=== PATIENT | female | born 1965 | race Caucasian/White ===

== ENCOUNTER 2020-04-17 10:43 | Outpatient (CLI) | payer OTHER, SELFPAY ==
--- NOTE | ~2020-04-17 | MM_ITS ---
EXAMINATION: MM scrn fco implant BI w venkat HISTORY: Screening mammogram TECHNIQUE: Craniocaudal and mediolateral oblique 3-D tomosynthesis images with implant displacement a nd synthetic 2-D images were generated. Craniocaudal and mediolateral oblique views of the breasts wi thout implant displacement were obtained using full field digital mammography. CAD analysis was submi tted and interpreted. COMPARISON: Comparison to multiple prior studies sequentially, with oldest reviewed study dated 03/31. BREAST PARENCHYMAL COMPOSITION: The breasts are heterogeneously dense, which may obscure small masses . FINDINGS: Stable right periareolar mass previously characterized as a benign cysts. There is no evide nce of suspicious mass, calcification, or architectural distortion to suggest malignancy in either br east. There has been no suspicious interval change. IMPRESSION: 1. No mammographic evidence of malignancy. 2. Recommend routine screening mammography in one year. BI-RADS Category 2: Benign finding(s). Reviewed, dictated and finalized at location A.
== END 2020-04-17 10:44 | disposition home or self-care (01) ==
PROVIDERS: PCP Nurse Practitioner Obstetrics & Gynecology; Visit Provider Nurse Practitioner Obstetrics & Gynecology
DX: Z12.31 Encounter for screening mammogram for malignant neoplasm of breast (principal)
CPT/HCPCS: 77063; 77067

== ENCOUNTER 2020-08-23 21:08 | Emergency (ER) | payer OTHER, SELFPAY ==
--- NOTE | ~2020-08-23 | CT_ITS ---
EXAMINATION: CT abdomen pelvis w con EXAM DATE: 08/23/2020 23:19 INDICATION: Left upper quadrant pain for one month. TECHNIQUE: Spiral CT of the abdomen and pelvis was performed following intravenous injection of 100 m L Omnipaque 350. Axial, coronal and sagittal images were reviewed. The dose-length product (DLP) fo r this examination was 374.18 mGy-cm. The exposure was tailored according to patient size (auto mA e xposure control), and iterative reconstruction (ASIR) was used as additional dose reduction technique . There is no prior study for comparison. FINDINGS: The liver, spleen, adrenal glands and pancreas are unremarkable. Gallbladder is unremarkab le. No biliary obstruction. Portal and splenic veins are patent. Kidneys enhance symmetrically. T here is no hydronephrosis. The uterus is unremarkable. The bladder is unremarkable. There is no retroperitoneal or pelvic lymphadenopathy. The appendix is normal. The stomach and small bowel are unremarkable. There is large amount of colo jonna stool. No free intraperitoneal gas. The heart is normal in size. There are no pericardial or pleural effusions. The lung bases are unremarkable. The bones are unremarkable. IMPRESSION: Large amount of colonic stool and gas. Consider constipation. Reviewed, dictated and finalized at location G.
[2020-08-23 21:11] VITALS: BP 127/86; PULSE 56; RESP 12; TEMP 36.5; O2SAT 100
[2020-08-23 21:46] VITALS: BP 127/86; PULSE 56; RESP 14; TEMP 36.5; O2SAT 100
--- NOTE | 2020-08-23 22:15 | ED.GENADULT ---
HPI - General Adult General Chief complaint: Abdominal Pain Stated complaint: abd pain Time Seen by Provider: 08/23/20 22:00 History of Present Illness HPI narrative: Intermittent LUQ abdomianl pain for the past month. No radiation. Usually worse after food. Associated with bloating. She is scheduled to have an outpatient CT soon, but the pain was worse tonight, so she came in instead. No fever, chills, nausea, vomiting, diarrhea. She had recent upper endoscopy, which it sounds like was essentially normal. Related Data Allergies Allergy/AdvReac Type Severity Reaction Status Date / Time No Known Allergies Allergy Verified 01/15/17 19:40 Review of Systems Review of Systems: All systems reviewed & are unremarkable except as noted in HPI and below Constitutional: Constitutional: Denies chills and Denies fever(s) ENT: Denies sore throat Cardiovascular: Cardiovascular: Denies chest pain Respiratory: Respiratory: Denies dyspnea Gastrointestinal: Gastrointestinal: Reports abdominal pain, Denies diarrhea, Denies nausea and Denies vomiting Genitourinary: Genitourinary: Denies hematuria, Denies nocturia and Denies dysuria Musculoskeletal: Musculoskeletal: Denies back pain Neurologic: Denies weakness [facility] Family History Family History (Updated 06/06/16 @ 23:19 by DOCTOR UNKNOWN) Mother Hypertension Family history of malignant neoplasm of cervix Family history of malignant neoplasm of ovary Grandparent Cerebrovascular accident Family history of malignant neoplasm of breast Social History Social History Smoking status: Never smoker Second hand tobacco smoke exposure: No Alcohol intake: current Gender identity (if verbalized by the patient): Female Exam Const: General: healthy appearing, no acute distress and alert Orientation/consciousness: patient oriented x3 HENMT: Head: normal to inspection Neck: Neck: normal visual inspection and no lymphadenopathy Chest: Chest palpation & inspection: no tenderness Resp: Effort & Inspection: normal respiratory effort Auscultation: clear to auscultation bilaterally, no rales, no rhonchi and no wheezes Cardio: Jugular venous distension: no JVD Rate: regular rate Rhythm: regular rhythm Heart sounds: no murmurs GI: Inspection: non-distended GI Palp: Yes Soft to palpation and No Tenderness to palpation present (GI) Skin: General skin exam: normal color Neuro: General: patient oriented x3 and moves all extremities Speech: normal speech Extrem: General: no edema Psych: Appearance: well kempt Affect: normal affect Course Vital Signs Vital signs: Vital Signs Temperature 36.5 C 08/23/20 21:11 Pulse Rate 56 L 08/23/20 21:11 Respiratory Rate 12 08/23/20 21:11 Blood Pressure 127/86 08/23/20 21:11 Pulse Oximetry 100 08/23/20 21:11 Temperature 36.5 C 08/23/20 21:46 Pulse Rate 54 L 08/24/20 00:01 Respiratory Rate 18 08/24/20 00:01 Blood Pressure 102/81 08/24/20 00:01 Pulse Oximetry 100 08/24/20 00:01 Medical Decision Making MDM Narrative Medical decision making narrative: DD: Diverticulitis, kidney stone, Consitpation, CT shows a large volume of stool consistent with constipation. This fits well with the history. Medical Records Medical records reviewed: Yes I reviewed the patient's medical records. Vital Signs Vital Signs: Vital Signs Temperature 36.5 C 08/23/20 21:11 Pulse Rate 56 L 08/23/20 21:11 Respiratory Rate 12 08/23/20 21:11 Blood Pressure 127/86 08/23/20 21:11 Pulse Oximetry 100 08/23/20 21:11 Temperature 36.5 C 08/23/20 21:46 Pulse Rate 54 L 08/24/20 00:01 Respiratory Rate 18 08/24/20 00:01 Blood Pressure 102/81 08/24/20 00:01 Pulse Oximetry 100 08/24/20 00:01 Lab Data Lab results reviewed: Yes I reviewed the patient's lab results. Result diagrams: 08/23/20 22:42 08/23/20 22:42 Labs: Lab Results 08/23/20
[2020-08-23 22:47] LABS: Basophils Absolute Auto 0.1 K/mm3 (0.0-0.1); Eosinophils Absolute Auto 0.1 K/mm3 (0-0.3); Eosinophils Percent Auto 1.6 % (0-4.4); Hematocrit 39.6 % (37.0-47.0); Hemoglobin 13.3 g/dL (12.0-15.0); Immature Granulocyte Absolute 0.01 K/mm3 (0.00-0.031); Immature Granulocyte Percent A 0.2 % (0-0.5); Lymphocytes Absolute Auto 2.39 K/mm3 (0.9-3.2); Lymphocytes Percent Auto 46.7 % (18.3-44.2); Mean Corpuscular HGB Conc 33.6 g/dl (32-36); Mean Corpuscular Hemoglobin 33.1 pg (26-34); Mean Corpuscular Volume 98.5 fl (80-100); Mean Platelet Volume 10.5 fl (7.4-10.4); Monocytes Absolute Auto 0.4 K/mm3 (0.1-0.6); Monocytes Percent Auto 8.2 % (2.6-8.5); Neutrophils Absolute Auto 2.2 K/mm3 (1.3-6.7); Neutrophils Percent Auto 42.3 % (45.5-73.1); Platelet Count Result 261 k/mm3 (150-375); Red Blood Count 4.02 M/mm3 (4.2-5.4); Red Cell Distribution Width 12.5 % (11.5-14.5); White Blood Count 5.1 K/mm3 (4.5-10.0)
[2020-08-23 22:59] LABS: Alanine Aminotransferase 23 U/L (4-35); Albumin Level 4.7 g/dL (3.5-5.1); Alkaline Phosphatase 38 U/L (38-126); Anion Gap 5 mmol/L (8-16); Aspartate Amino Transferase 27 U/L (14-36); Bilirubin,Total 0.4 mg/dL (0.2-1.3); Blood Urea Nitrogen 14 mg/dL (7-17); Calcium 9.8 mg/dL (8.4-10.2); Carbon Dioxide 33 mmol/L (22-30); Chloride 103 mmol/L (98-107); Estimated CRCL calculation 66 ml/min; Estimated Glomerular Filt Rate > 60; Glucose 89 mg/dL (65-105); Lipase 121 U/L (23-300); Potassium 3.7 mmol/L (3.4-5.0); Sodium 141 mmol/L (137-145)
[2020-08-24 00:01] VITALS: BP 102/81; PULSE 54; RESP 18; O2SAT 100
== END 2020-08-24 00:41 | disposition home or self-care (01) ==
PROVIDERS: Emergency Provider Emergency Medicine
DX: K59.00 Constipation, unspecified (principal)
CPT/HCPCS: 36415; 74177; 80053; 81025; 83690; 85025; 99284; Q9967

== ENCOUNTER 2020-11-09 12:32 | Emergency (ER) | payer OTHER, SELFPAY ==
--- NOTE | ~2020-11-09 | XR_ITS ---
EXAMINATION: XR chest 2V DATE: 11/09/2020 13:40 INDICATION: Right-sided lower anterior chest pain TECHNIQUE: PA and lateral views of the chest were obtained. COMPARISON: Chest radiograph dated 01/15/2017 FINDINGS: The lungs remain clear with no focal airspace opacities, pulmonary edema, pleural effusion or pneumot horax. The cardiomediastinal silhouette is normal. Bilateral breast implants. Mild thoracic spondylos is and unchanged mild chronic anterior wedging of a lower thoracic vertebral body. IMPRESSION: 1. No acute cardiopulmonary disease. Reviewed, dictated and finalized at location A. 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
--- NOTE | ~2020-11-09 | CT_ITS ---
EXAMINATION: CTA chest PE protocol DATE: 11/09/2020 15:02 INDICATION: Chest pain TECHNIQUE: Computed tomography angiography (CTA) of the chest was performed with 100 mL Omnipaque-350 intravenous contrast timed to evaluate the pulmonary arteries. Coronal maximum intensity projection 3D-reconstructions were created by the technologist. The dose-length product (DLP) was 302.18 mGy-cm. Automated exposure control and iterative reconstruction technique were employed. COMPARISON: None. FINDINGS: The pulmonary arteries are well-opacified. No pulmonary embolism is identified. The lungs a re free of acute opacities. There is no pleural effusion or pneumothorax. No pathologically enlarged thoracic lymph nodes are identified. The heart size is normal. Breast implants are noted. There is mi ld thoracic and moderate cervical spondylosis. IMPRESSION: 1. No pulmonary embolism or acute cardiopulmonary abnormality. Reviewed, dictated and finalized at location A. 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
[2020-11-09 12:35] VITALS: BP 176/110; PULSE 62; RESP 20; TEMP 36.8; O2SAT 100
--- NOTE | 2020-11-09 12:39 | ECG_ITS ---
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
[2020-11-09 13:00] LABS: Basophils Absolute Auto 0.1 K/mm3 (0.0-0.1); Basophils Percent Auto 1.1 % (0.2-1.2); Eosinophils Absolute Auto 0.1 K/mm3 (0-0.3); Hematocrit 38.5 % (37.0-47.0); Hemoglobin 12.8 g/dL (12.0-15.0); Lymphocytes Percent Auto 54.3 % (18.3-44.2); Mean Corpuscular HGB Conc 33.2 g/dl (32-36); Mean Corpuscular Hemoglobin 32.1 pg (26-34); Mean Corpuscular Volume 96.5 fl (80-100); Mean Platelet Volume 10.4 fl (7.4-10.4); Monocytes Absolute Auto 0.4 K/mm3 (0.1-0.6); Monocytes Percent Auto 8.4 % (2.6-8.5); Neutrophils Absolute Auto 1.5 K/mm3 (1.3-6.7); Neutrophils Percent Auto 34.2 % (45.5-73.1); Platelet Count Result 279 k/mm3 (150-375); Red Blood Count 3.99 M/mm3 (4.2-5.4); Red Cell Distribution Width 12.6 % (11.5-14.5); White Blood Count 4.4 K/mm3 (4.5-10.0)
[2020-11-09 13:11] LABS: Anion Gap 9 mmol/L (8-16); Blood Urea Nitrogen 9 mg/dL (7-17); Calcium 9.5 mg/dL (8.4-10.2); Carbon Dioxide 27 mmol/L (22-30); Chloride 101 mmol/L (98-107); Estimated CRCL calculation 71 ml/min; Estimated Glomerular Filt Rate > 60; Glucose 98 mg/dL (65-105); Potassium 3.5 mmol/L (3.4-5.0); Sodium 137 mmol/L (137-145)
[2020-11-09 13:14] LABS: INR 0.9; Prothrombin Time 12.8 Seconds (11.1-14.7)
[2020-11-09 13:15] LABS: Partial Thromboplastin Time 28.6 SECONDS (22.3-36.8)
[2020-11-09 13:23] LABS: Troponin I < 0.012 ng/mL (0.000-0.034)
[2020-11-09 13:53] LABS: D Dimer 0.75 ug/mL (<0.48)
[2020-11-09 14:23] VITALS: PULSE 78
[2020-11-09] MEDS: FAMOTIDINE 20 MG/2 ML VIAL IV PUSH (14:24)
[2020-11-09] MEDS: SODIUM CHLORIDE 0.9% IV 1,000 ML 999 ML IV CONT (14:24)
[2020-11-09] MEDS: KETOROLAC 30 MG/ML VIAL (*BKC) IV PUSH (14:24)
--- NOTE | 2020-11-09 14:34 | ED.CHESTPAIN ---
HPI - Chest Pain General Chief Complaint: Chest Pain Stated Complaint: right chest pain Time Seen by Provider: 11/09/20 13:24 Source: patient Mode of arrival: ambulatory Limitations: no limitations History of Present Illness HPI narrative: Patient is a 55-year-old female who presents to emergency department for evaluation of sharp stabbing right thoracic pain that originated around the level of the scapula right posterior and radiates around to the right breast pain is an intermittent stabbing sharp pain patient notes that she had felt fine denies similar occurrence in the past denies rash URI symptoms dyspnea or abdominal pain. Patient has had recent GI evaluation secondary to abdominal pain but denies any abdominal or GI upset today Related Data Allergies Allergy/AdvReac Type Severity Reaction Status Date / Time No Known Allergies Allergy Verified 11/09/20 12:39 Review of Systems Review of Systems: All systems reviewed & are unremarkable except as noted in HPI and below PMFSH Family History Family History (Updated 06/06/16 @ 23:19 by DOCTOR UNKNOWN) Mother Hypertension Family history of malignant neoplasm of cervix Family history of malignant neoplasm of ovary Grandparent Cerebrovascular accident Family history of malignant neoplasm of breast Social History Social History Smoking status: Never smoker Second hand tobacco smoke exposure: No Alcohol intake: current Gender identity (if verbalized by the patient): Female Exam Narrative: Exam Narrative: GENERAL: Well-appearing, well-nourished, and in no acute distress. HEAD: Normocephalic, atraumatic. EYES: PERRLA and EOMI. ENT: Nares clear, no rhinorrhea or epistaxis. Mucous membranes moist. CHEST: Clear to auscultation. No respiratory distress. No wheezes rales or rhonchi. No rash of the thorax or anterior chest no tenderness to palpation HEART: Regular rate and rhythm. No murmur heard. Normal peripheral pulses. ABDOMEN: Soft, nontender, nondistended EXTREMITIES: Normal range of motion. No edema. SKIN: Warm, dry, no rash. NEURO: No focal deficits. Alert and oriented x3. PSYCH: Normal mood and affect. Course Course Emergency Course: Patient presented with thoracic back pain in no distress normal vital signs no high risk changes in the blood work or imaging will be treated musculoskeletal back pain advised about rash shows up she has shingles there is no URI symptoms or pneumonia no hypoxemia or other concerning symptoms or findings at this time nontender abdominal exam normal vital signs ABCs intact. Vital Signs Vital signs: Vital Signs Temperature 98.3 F 11/09/20 12:35 Pulse Rate 62 11/09/20 12:35 Respiratory Rate 20 11/09/20 12:35 Blood Pressure 176/110 H 11/09/20 12:35 Pulse Oximetry 100 11/09/20 12:35 Temperature 98.3 F 11/09/20 12:35 Pulse Rate 62 11/09/20 14:38 Respiratory Rate 12 11/09/20 14:38 Blood Pressure 118/89 11/09/20 14:38 Pulse Oximetry 100 11/09/20 14:38 MDM - Chest Pain MDM Narrative Medical decision making narrative: Patients EKGs and labs are without significant high risk changes. Cardiac risk factors were reviewed. Patient is felt likely to be low risk for ACS and reasonable for further risk stratification testing as an outpatient. Pain was not sudden or maximal in onset without tearing or ripping. quality. No other signs or symptoms to suggest aortic dissection. A low-risk Wells criteria is noted. PE is felt to be unlikely. No pneumonia or URI symptoms were seen on evaluation today. Patient is felt to b reasonable for continued evaluation as an outpatient. Lab Data Result diagrams: 11/09/20 12:45 11/09/20 12:45 Labs: Lab Results 11/09/20 11/09/20 11/09/20 Range/Units 10:29 12:45 12:45 WBC 4.4 L (4.5-10.0) K/mm3 RBC 3.99 L (4.2-5.4) M/mm3 Hgb 12.8 (12.0-15.0) g/dL H
[2020-11-09 14:38] VITALS: BP 118/89; PULSE 62; RESP 12; O2SAT 100
[2020-11-09 14:50] LABS: Alanine Aminotransferase 26 U/L (4-35); Albumin Level 4.2 g/dL (3.5-5.1); Alkaline Phosphatase 34 U/L (38-126); Aspartate Amino Transferase 29 U/L (14-36); Bilirubin,Total 0.5 mg/dL (0.2-1.3); Lipase 116 U/L (23-300)
[2020-11-09] MEDS: HYDROcodone/acetaminophen (*CRX) 7.5-325 MG TABLET 1 TAB PO (15:49)
[2020-11-09] MEDS: diazePAM (*CRX) 5 MG TABLET PO (15:50)
[2020-11-09] MEDS: DEXAMETHASONE SOD PHOS INJ 4 MG/ML VIAL 10 MG IV PUSH (15:50)
[2020-11-09 15:51] VITALS: BP 119/85; PULSE 68; RESP 16; O2SAT 100
== END 2020-11-09 16:03 | disposition home or self-care (01) ==
PROVIDERS: Emergency Medicine; Emergency Medicine Emergency Medical Services; Emergency Provider Emergency Medicine
DX: M54.6 Pain in thoracic spine (principal); I45.10 Unspecified right bundle-branch block
CPT/HCPCS: 36415; 71046; 71275; 80048; 80076; 83690; 84484; 85025; 85380; 85610; 85730; 93005; 96361; 96374; 96375; 99284; A9270; J1100; J1885; J7030; Q9967

== ENCOUNTER 2020-11-16 12:00 | Outpatient (CLI) | payer OTHER, SELFPAY ==
--- NOTE | ~2020-11-16 | NM_ITS ---
EXAMINATION: NM hepatobiliary wo pharm EXAM DATE: 11/16/2020 16:32 INDICATION: Right upper quadrant pain. TECHNIQUE: 5 mCi Tc-99m mebrofenin (Choletec) was administered intravenously. Scintigraphic images o f the abdomen were obtained for one hour. 4 delayed planar images also obtained. FINDINGS: There is delayed clearance of radiotracer from the blood pool. There is mildly heterogeneou s tracer uptake by the liver. Gallbladder activity identified at 5 minutes, with increasing activity over the next hour. No common bile duct or small bowel activity identified on these images or on the 4 hour delayed. IMPRESSION: Progressive gallbladder filling without common bile duct or small bowel activity at one h our or 4 hour delayed image. This suggests gallbladder dysfunction or obstructed common bile duct. Re portedly patient has minimal symptoms during time of exam. Reviewed, dictated and finalized at location A. NT PARTNER IMPRESSION: Progressive gallbladder filling without common bile duct or small b owel activity at one hour or 4 hour delayed image. This suggests gallbladder dy sfunction or obstructed common bile duct. Reportedly patient has minimal sympto ms during time of exam.
== END 2020-11-16 12:01 | disposition home or self-care (01) ==
PROVIDERS: Visit Provider Internal Medicine Gastroenterology
DX: R10.11 Right upper quadrant pain (principal)
CPT/HCPCS: 78226; A9537

== ENCOUNTER 2021-02-13 08:04 | Outpatient (CLI) | payer OTHER, SELFPAY ==
--- NOTE | ~2021-02-13 | NM_ITS ---
EXAM: NM gastric emptying study DATE: 02/13/2021 14:26 INDICATION: Dysphagia and indigestion presenting with left upper quadrant pain and bloating. TECHNIQUE: A gastric emptying study was performed using the methodology of Sylvie SPAIN, et al. J Nucl Med 2007; 48:568-572. The patient was given a meal consisting of 2 scrambled eggs labeled with 0.962 mCi Tc-99m sulfur colloid, 2 slices of toast, two packages of jam, and approximately 120 mL of water . Simultaneous anterior and posterior 1-min images of the abdomen were obtained with the patient supi ne at multiple time points over a total period of 4 hours. The geometric mean of anterior and posteri or views was determined, and the percentage retention was calculated for each time point. COMPARISON: None. FINDINGS: Gastric retention of the radiotracer-labeled meal was 50%, 15%, and 1% at the 1-hour, 2-hour, and 4-h our time points, respectively. With this technique, apparent rapid gastric emptying is suggested by < 30% gastric retention at 1 hour. Delayed gastric emptying is defined by gastric retention of >90% at 1 hour, >60% retention at 2 hours, or >10% retention at 4 hours. IMPRESSION: 1. Normal gastric emptying. Reviewed, dictated and finalized at location B. IMPRESSION: 1. Normal gastric emptying.
== END 2021-02-13 08:05 | disposition home or self-care (01) ==
LOC: ANHIMG 08:08
PROVIDERS: Visit Provider Internal Medicine Gastroenterology
DX: K30 Functional dyspepsia (principal); R10.12 Left upper quadrant pain; R14.0 Abdominal distension (gaseous); R19.7 Diarrhea, unspecified; R68.81 Early satiety
CPT/HCPCS: 78264; A9541

== ENCOUNTER 2021-04-18 10:37 | Outpatient (CLI) | payer OTHER, SELFPAY ==
--- NOTE | ~2021-04-18 | MM_ITS ---
EXAMINATION: MM scrn fco implant BI w venkat HISTORY: Screening mammogram TECHNIQUE: Craniocaudal and mediolateral oblique 3-D tomosynthesis images with implant displacement a nd synthetic 2-D images were generated. Craniocaudal and mediolateral oblique views of the breasts wi thout implant displacement were obtained using full field digital mammography. CAD analysis was submi tted and interpreted. COMPARISON: 03/27/2020, 02/28/2019 bilateral implant digital screening mammogram examinations 03/04/2018 diagnostic right digital mammogram and limited right breast ultrasound 02/26/2018 bilateral implant digital screening mammogram BREAST PARENCHYMAL COMPOSITION: The breasts are heterogeneously dense, which may obscure small masses . FINDINGS: Status post bilateral augmentation mammoplasty. Chronic approximately 7 x 11.5 mm circumscribed opacity with some amorphous fibroadenoma-like superfi cial calcifications, most likely benign calcified fibroadenoma, is identified in the inferolateral ri ght subareolar area. There is no evidence of suspicious mass, calcification, or architectural distort ion to suggest malignancy in either breast. There has been no suspicious interval change. IMPRESSION: 1. No mammographic evidence of malignancy. 2. Recommend routine screening mammography in one year. BI-RADS Category 2: Benign finding(s). Reviewed, dictated and finalized at location A.
== END 2021-04-18 10:38 | disposition home or self-care (01) ==
LOC: ANHIMG 10:40
PROVIDERS: Visit Provider Obstetrics & Gynecology
DX: Z12.31 Encounter for screening mammogram for malignant neoplasm of breast (principal)
CPT/HCPCS: 77063; 77067

== ENCOUNTER 2021-05-20 15:13 | Outpatient (CLI) | payer OTHER, SELFPAY ==
--- NOTE | ~2021-05-20 | CT_ITS ---
EXAMINATION: CT abdomen pelvis w con EXAM DATE: 05/20/2021 15:41 INDICATION: Dysphagia, indigestion, LUQ postprandial pain, bloating, altered bh. TECHNIQUE: Spiral CT of the abdomen and pelvis was performed following intravenous injection of 100 m L Omnipaque 350. Axial, coronal and sagittal images of the abdomen and pelvis were reviewed. The do se-length product (DLP) for this examination was 290.05 mGy-cm. The exposure was tailored according to patient size (auto mA exposure control), and iterative reconstruction (ASIR) was used as additiona l dose reduction technique. Comparison is made to prior examination from 08/23/2020. FINDINGS: The liver, spleen, adrenal glands and pancreas are unremarkable. There are cholecystectomy clips. Portal and splenic veins are patent. Kidneys enhance symmetrically. There is no hydronephr osis. Fibroid uterus. The bladder is unremarkable. There is no retroperitoneal or pelvic lymphade nopathy. There are no findings to suggest appendicitis. The stomach and small bowel are unremarkable. There is moderate amount of colonic stool. No free intraperitoneal gas. The heart is normal in size. T here are no pericardial or pleural effusions. The lung bases are unremarkable. There are no osteobl astic or osteolytic lesions identified. IMPRESSION: 1. No acute intra-abdominal findings. 2. Moderate amount of colonic stool. Reviewed, dictated and finalized at location A.
== END 2021-05-20 15:14 | disposition home or self-care (01) ==
LOC: ANHIMG 15:15
PROVIDERS: Visit Provider Internal Medicine Gastroenterology
DX: R13.10 Dysphagia, unspecified (principal)
CPT/HCPCS: 74177; Q9967

== ENCOUNTER 2022-05-06 10:50 | Emergency (ER) | payer OTHER, SELFPAY ==
[2022-05-06 11:00] VITALS: BP 112/78; PULSE 66; RESP 18; TEMP 37.2; O2SAT 100
--- NOTE | 2022-05-06 11:28 | ED.DENTAL ---
HPI - Dental/Oral General Chief complaint: Dental/Oral Stated complaint: Tooth Pain Lt Side Time Seen by Provider: 05/06/22 11:28 Source: patient, RN notes reviewed and old records reviewed Mode of arrival: ambulatory Limitations: no limitations History of Present Illness HPI Narrative: 57 year old female with complaints of redness, swelling, and pain to gum area surrounding #14 tooth for the past 1 week duration with pain increase when she tries to eat. Patient denies any drainage from the gum reports swelling has increased on the gum around the left back molar #14. Patient denies any fever chills or sweats reports no difficulty with swallowing or any difficulty with her breathing. Patient reports that she has been using Oragel to gum and also using saltwater gargles and some Ibuprofen. Patient reports that she does not have a dentist has been calling around but has not received any return phone call. MD Complaint: tooth pain Location: Tooth # (14) Onset (ago): week(s) (1) Treatment prior to arrival: topical analgesic, oral analgesic and other (salt water gargles) Related Data Allergies Allergy/AdvReac Type Severity Reaction Status Date / Time No Known Allergies Allergy Verified 05/06/22 11:18 Review of Systems Review of Systems: CONSTITUTIONAL: Denies fever, chills, or sweats. EYES: Denies visual changes, redness, or discharge. ENT: Denies rhinorrhea, congestion, sore throat, or otalgia.positive for dental pain left upper gum CARDIOVASCULAR: Denies chest pain, palpitations, or edema. RESPIRATORY: Denies cough or dyspnea. GASTROINTESTINAL: Denies abdominal pain, nausea, vomiting, or diarrhea. GENITOURINARY: Denies dysuria or hematuria. SKIN: Denies rash or itching. MUSCULOSKELETAL: Denies back pain, joint pain, or myalgia. NEUROLOGIC: Denies headache, numbness, or weakness. PSYCHIATRIC: Denies anxiety or depression. All systems reviewed & are unremarkable except as noted in HPI and below PMFSH Past Medical History Medical History (Updated 05/06/22 @ 14:34 by Yael Swartz NP) No significant past medical history Surgical History Surgical History (Updated 05/06/22 @ 14:32 by Yael Swartz NP) H/O breast augmentation History of endometrial ablation Hx of LASIK Family History Family History Mother Hypertension Family history of malignant neoplasm of cervix Family history of malignant neoplasm of ovary Grandparent Cerebrovascular accident Family history of malignant neoplasm of breast Social History Social History Smoking status: Never smoker Second hand tobacco smoke exposure: No Alcohol intake: current Gender identity (if verbalized by the patient): Female Comments At time of signature, agree with nursing past medical, surgical, social and family history. There is no relevant family history pertinent to the presenting complaint Exam Narrative: GENERAL: Well-appearing, well-nourished, and in no acute distress. HEAD: Normocephalic, atraumatic. EYES: PERRLA and EOMI. ENT: Nares clear, no rhinorrhea or epistaxis. Mucous membranes moist. TMs normal with good light reflex throat pink with no lesions or exudates tonsils not swollen, swelling around #14 top left molar with tenderness to gum on palpation, tooth has large filling to tooth, no drainage noted from gum, increased pain with eating reported, no Donaldo angina noted or facial swelling. NECK: Supple.no lymphadenopathy CHEST: Clear to auscultation. No respiratory distress.SAO2 100% on room air HEART: Regular rate and rhythm. No murmur heard. Normal peripheral pulses. ABDOMEN: Soft, nontender, nondistended, normal active bowel sounds. EXTREMITIES: Normal range of motion. No edema. SKIN: Warm, dry, no rash. NEURO: No focal deficits. Alert and oriented x3. Course Course Level of Care: Express Care Visit Vital Signs Vi
== END 2022-05-06 12:15 | disposition home or self-care (01) ==
PROVIDERS: Emergency Provider Registered Nurse
DX: K04.7 Periapical abscess without sinus (principal)
CPT/HCPCS: 99213; G0463

== ENCOUNTER 2022-05-08 11:18 | Outpatient (CLI) | payer OTHER, SELFPAY ==
--- NOTE | ~2022-05-08 | MMUS_ITS ---
EXAMINATION: MM diag fco implant BI w venkat, US breast RT limited HISTORY: Right breast pain TECHNIQUE: Additional 3-D tomosynthesis images of the breasts were performed and synthetic 2-D images were generated. CAD analysis was submitted and interpreted. High resolution Limited right breast ult rasound was performed. COMPARISON: Comparison to multiple prior studies sequentially, with oldest reviewed study dated 03/04. BREAST PARENCHYMAL COMPOSITION: The breasts are extremely dense, which lowers the sensitivity of mamm ography. FINDINGS: MAMMOGRAPHIC FINDINGS: Stable benign-appearing right breast mass near the areola. No new masses, calcifications or sap solutions architect ural distortion in either breast to suggest malignancy. ULTRASOUND: Limited right breast ultrasound in the area of patient's discomfort. Normal heterogeneous echotexture without focal mass. There are bilateral subpectoral saline implants. IMPRESSION: 1. No evidence for malignancy in either breast. 2. Routine yearly screening mammogram and regular clinical breast examination are recommended. BI-RADS Category 2: Benign finding(s). Reviewed, dictated and finalized at location A. IMPRESSION: 1. No evidence for malignancy in either breast. 2. Routine yearly screening mammogram and regular clinical breast examination a re recommended. BI-RADS Category 2: Benign finding(s).
== END 2022-05-08 11:19 | disposition home or self-care (01) ==
PROVIDERS: Visit Provider Registered Nurse School
DX: N64.4 Mastodynia (principal)
CPT/HCPCS: 76642; 77062; 77066; G0279

== ENCOUNTER 2023-06-23 12:28 | Outpatient (CLI) | payer OTHER, SELFPAY ==
--- NOTE | ~2023-06-23 | MM_ITS ---
EXAMINATION: MM scrn fco implant BI w venkat HISTORY: Screening mammogram TECHNIQUE: Craniocaudal and mediolateral oblique 3-D tomosynthesis images with implant displacement a nd synthetic 2-D images were generated. Craniocaudal and mediolateral oblique views of the breasts wi thout implant displacement were obtained using full field digital mammography. CAD analysis was submi tted and interpreted. COMPARISON: Comparison to multiple prior studies sequentially, with oldest reviewed study dated 03/04. BREAST PARENCHYMAL COMPOSITION: There are scattered areas of fibroglandular density. FINDINGS: There is no evidence of suspicious mass, calcification, or architectural distortion to sugg est malignancy in either breast. There has been no suspicious interval change. IMPRESSION: 1. No mammographic evidence of malignancy. 2. Recommend routine screening mammography in one year. BI-RADS Category 1: Negative Reviewed, dictated and finalized at location A.
== END 2023-06-23 12:29 | disposition home or self-care (01) ==
LOC: CHSIMG 12:30
PROVIDERS: PCP Nurse Practitioner Family; Visit Provider Registered Nurse School
DX: Z12.31 Encounter for screening mammogram for malignant neoplasm of breast (principal)
CPT/HCPCS: 77063; 77067

== ENCOUNTER 2024-04-11 10:31 | Emergency (ER) | payer OTHER, SELFPAY ==
[2024-04-11] VITALS (17 sets, daily range): BP systolic 98–138; BP diastolic 50–76; PULSE 49–85; RESP 10–19; TEMP 36.6; O2SAT 92–100
--- NOTE | ~2024-04-11 | XR_ITS ---
EXAMINATION: XR chest 2V DATE: 04/11/2024 12:01 INDICATION: Right chest pain. TECHNIQUE: Frontal and lateral views of the chest were obtained. COMPARISON: Chest 2 views 11/09/2020 FINDINGS: There is no pneumonia, pleural effusion, or pneumothorax. The heart size is normal. Breast implants are noted. IMPRESSION: 1. No acute cardiopulmonary disease. Reviewed, dictated and finalized at location A.
--- NOTE | 2024-04-11 10:31 | ECG_ITS ---
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 Measurements Intervals [place] Rate: 75 P: 62 PA: 114 QRS: 69 QRSD: 81 T: 28 QT: 369 QTc: 413 Interpretive Statements SINUS RHYTHM WITH SHORT PA INTERVAL NONSPECIFIC T-WAVE ABNORMALITY ABNORMAL ECG No previous ECG available for comparison Electronically Signed On 04-11-2024 14:52:42 CDT by Jordon Esqueda M.D.
[2024-04-11 10:54] LABS: Basophils Absolute Auto 0.1 K/mm3 (0.0-0.1); Basophils Percent Auto 0.8 % (0.2-1.2); Eosinophils Absolute Auto 0.1 K/mm3 (0-0.3); Eosinophils Percent Auto 1.9 % (0-4.4); Hematocrit 41.3 % (37.0-47.0); Hemoglobin 13.8 g/dL (12.0-15.0); Immature Granulocyte Absolute 0.01 K/mm3 (0.00-0.031); Immature Granulocyte Percent A 0.2 % (0-0.5); Lymphocytes Absolute Auto 1.93 K/mm3 (0.9-3.2); Lymphocytes Percent Auto 30.8 % (18.3-44.2); Mean Corpuscular HGB Conc 33.4 g/dl (32-36); Mean Corpuscular Hemoglobin 32.8 pg (26-34); Mean Corpuscular Volume 98.1 fl (80-100); Mean Platelet Volume 10.1 fl (7.4-10.4); Monocytes Absolute Auto 0.4 K/mm3 (0.1-0.6); Neutrophils Absolute Auto 3.7 K/mm3 (1.3-6.7); Neutrophils Percent Auto 59.3 % (45.5-73.1); Platelet Count Result 268 k/mm3 (150-375); Red Blood Count 4.21 M/mm3 (4.2-5.4); Red Cell Distribution Width 12.6 % (11.5-14.5); White Blood Count 6.3 K/mm3 (4.5-10.0)
--- NOTE | 2024-04-11 11:07 | PC.NURSE ---
Pt sig other reported to intake nurse pt is not doing well and may pass out. This RN put pt in a w/c and did second set of vital signs. Pt HR currently 65. Pt educated on not getting up alone. Updated on waiting for a room. Will continue to monitor pt.
[2024-04-11 11:09] LABS: Prothrombin Time 13.4 Seconds (11.1-14.7)
[2024-04-11 11:11] LABS: Alanine Aminotransferase 20 U/L (6-35); Albumin Level 4.5 g/dL (3.5-5.1); Alkaline Phosphatase 39 U/L (38-126); Anion Gap 5 mmol/L (4-12); Aspartate Amino Transferase 23 U/L (14-36); Bilirubin,Total 0.6 mg/dL (0.2-1.3); Blood Urea Nitrogen 12 mg/dL (7-17); Calcium 9.2 mg/dL (8.4-10.2); Carbon Dioxide 27 mmol/L (22-30); Chloride 103 mmol/L (98-107); Glucose 114 mg/dL (65-110); Lipase 69 U/L (23-300); Potassium 3.8 mmol/L (3.4-5.0); Sodium 135 mmol/L (137-145)
[2024-04-11 11:16] LABS: Estimated CRCL calculation 42 ml/min; Estimated Glomerular Filt Rate 39
[2024-04-11 11:18] LABS: Troponin I < 0.012 ng/mL (0.000-0.034)
[2024-04-11] MEDS: ASPIRIN 81 MG CHEWABLE TABLET 324 MG PO (13:05)
--- NOTE | 2024-04-11 13:30 | ECG_ITS ---
[facility] [address] Test Date: 2024-04-11 Pat Name: Coby Lopez Department: Room: Gender: F Compliance Representative: : 1965 Requested By: Bc Espinal Order Number: [id number] Garry MD: Jordon Esqueda M.D. Measurements Intervals [place] Rate: 52 P: 64 NC: 125 QRS: 62 QRSD: 84 T: 49 QT: 443 QTc: 413 Interpretive Statements SINUS BRADYCARDIA OTHERWISE NORMAL ECG Compared to ECG 04/11/2024 10:35:31 HEART RATE IS REDUCED, NO OTHER DIFFERENCE Electronically Signed On 04-11-2024 15:00:17 CDT by Jordon Esqueda M.D.
[2024-04-11] MEDS: KETOROLAC 30 MG/ML VIAL (*BKC) IV PUSH (13:37)
[2024-04-11] MEDS: BELLADONNA ALK/PHENOB ELIX 10 ML, MAG HYDROX/ALUMINUM HYD/SIMETH 30 ML, LIDOCAINE HCL 2... PO (13:40)
[2024-04-11 14:15] LABS: Troponin I < 0.012 ng/mL (0.000-0.034)
--- NOTE | 2024-04-11 15:29 | ED.GENADULT ---
HPI - General Adult General Chief complaint: Chest Pain Stated complaint: chest pain Time Seen by Provider: 04/11/24 12:42 History of Present Illness HPI narrative: The patient is a 59-year-old female who presents ER with right-sided back pain. It is located the scapula and radiates around the right side of her chest toward her breast. Pain with physical movement. No known injury. Mild discomfort with breathing but no dyspnea. No hemoptysis. No lower extremity swelling. No history of DVT / PE. No exertional chest pain. Patient also reports that she has been having regular belching at times. No heartburn symptoms. Related Data Home Medications Medication Instructions Recorded Confirmed amino acids ea PO 06/12/22 06/12/22 garlic PO 06/12/22 06/12/22 mknbrzry-ure-jffu-FA-lutein PO 06/12/22 06/12/22 [Multivitamin Women 50 Plus] phytonadione (vitamin K1) PO 06/12/22 06/12/22 Allergies Allergy/AdvReac Type Severity Reaction Status Date / Time No Known Allergies Allergy Verified 04/11/24 13:02 Review of Systems Review of Systems: All systems reviewed & are unremarkable except as noted in HPI and below Constitutional: Constitutional: Reports no additional constitutional complaints ENT: Reports system reviewed and no additional complaints, except as documented Cardiovascular: Cardiovascular: Reports no additional cardiovascular complaints Respiratory: Respiratory: Reports no additional respiratory complaints Gastrointestinal: Gastrointestinal: Reports no additional gastrointestinal complaints Musculoskeletal: Musculoskeletal: Reports back pain, Denies arthralgias and Denies joint swelling PMFSH Past Medical History Medical History (Updated 04/11/24 @ 15:29 by Bc Aparicio MD) Altered bowel habits Encounter to establish care No significant past medical history Rash and nonspecific skin eruption Skin tag Surgical History Surgical History (Updated 06/12/22 @ 13:17 by Zeferino Helton CMA) H/O breast augmentation History of endometrial ablation Hx of cholecystectomy Hx of LASIK Hx of rhinoplasty Hx of tubal ligation Family History Family History (Updated 06/12/22 @ 13:17 by Zeferino Helton CMA) Mother Hypertension Family history of malignant neoplasm of cervix Family history of malignant neoplasm of ovary Grandparent Cerebrovascular accident Family history of malignant neoplasm of breast Father Hypertension Social History Social History (Updated 06/12/22 @ 13:17 by Zeferino Helton CMA) Smoking status: Never smoker Second hand tobacco smoke exposure: No Alcohol intake: current Substance use: never Gender identity (if verbalized by the patient): Female Exam Narrative: GENERAL: Well-appearing, well-nourished, and in no acute distress. HEAD: Normocephalic, atraumatic. ENT: Mucous membranes moist. CHEST: Clear to auscultation. No respiratory distress. HEART: Regular rate and rhythm. Normal peripheral pulses. ABDOMEN: Soft, nontender, nondistended. BACK: No midline tenderness the T/L-spine. There is tenderness to inferior medial aspect of the scapula and is musculature on the right side. EXTREMITIES: Normal range of motion. No edema. SKIN: Warm, dry, no rash. NEURO: Alert and oriented x3. PSYCH: Normal mood and affect. Course Course Emergency Course: Pain improved. Troponin negative x2. Appropriate for discharge home. Vital Signs Vital signs: Vital Signs Temperature 97.9 F 04/11/24 10:38 Pulse Rate 75 04/11/24 10:38 Respiratory Rate 17 04/11/24 10:38 Blood Pressure 130/76 04/11/24 10:38 Pulse Oximetry 100 04/11/24 10:38 Oxygen Delivery Room Air 04/11/24 10:38 Temperature 97.9 F 04/11/24 10:38 Pulse Rate 85 04/11/24 15:15 Respiratory Rate 19 04/11/24 15:15 Blood Pressure 138/76 04/11/24 15:15 Pulse Oximetry 97 04/11/24 15:15 Oxygen Delivery Room Air 04/11/24 13:00 Medical
== END 2024-04-11 15:39 | disposition home or self-care (01) ==
PROVIDERS: Emergency Provider Emergency Medicine; PCP Nurse Practitioner Family
DX: M62.830 Muscle spasm of back (principal)
CPT/HCPCS: 36415; 71046; 80053; 83690; 84484; 85025; 85610; 85730; 93005; 96374; 99284; A9270; J1885

== ENCOUNTER 2024-06-27 12:00 | Outpatient (CLI) | payer OTHER, SELFPAY ==
--- NOTE | ~2024-06-27 | MM_ITS ---
EXAMINATION: MM scrn fco implant BI w venkat HISTORY: Screening mammogram TECHNIQUE: Craniocaudal and mediolateral oblique 3-D tomosynthesis images with implant displacement a nd synthetic 2-D images were generated. Craniocaudal and mediolateral oblique views of the breasts wi thout implant displacement were obtained using full field digital mammography. CAD analysis was submi tted and interpreted. COMPARISON: Comparison to multiple prior studies sequentially, with oldest reviewed study dated 03/04. BREAST PARENCHYMAL COMPOSITION: Dense: The breasts are heterogeneously dense, which may obscure small masses FINDINGS: Stable right periareolar mass unchanged dating back to 03/04/2018. There is no evidence of s uspicious mass, calcification, or architectural distortion to suggest malignancy in either breast. Th ere has been no suspicious interval change. IMPRESSION: 1. No mammographic evidence of malignancy. 2. Recommend routine screening mammography in one year. BI-RADS Category 2: Benign finding(s). Reviewed, dictated and finalized at location B.
== END 2024-06-27 12:01 | disposition home or self-care (01) ==
LOC: CHSIMG 12:02
PROVIDERS: PCP Family Medicine; Visit Provider Obstetrics & Gynecology
DX: Z12.31 Encounter for screening mammogram for malignant neoplasm of breast (principal)
CPT/HCPCS: 77063; 77067

== ENCOUNTER 2024-07-04 07:04 | Emergency (ER) | payer OTHER, SELFPAY ==
--- NOTE | ~2024-07-04 | CT_ITS ---
Non-contrast CT scan of the Abdomen and Pelvis Clinical indication: Right flank pain Technique: 2.5 mm axial scans were obtained through the abdomen and pelvis without intravenous or or al contrast. Dose reduction technique was used on this scan by utilizing automated exposure control a nd iterative reconstruction technique. The dose-length product (DLP) was 297.96 mGy-cm. COMPARISON: 05/20/2021 Findings: Images through the lung bases reveal no abnormalities. There is no evidence of renal or ureteral calculi. The kidneys and the ureters are nondilated. The liver, spleen, pancreas, and adrenals appear normal. Cholecystectomy clips are present. There is no aortic aneurysm. There is no evidence of bowel obstruction. Prominent stool suggests constipation. Images through the pelvis were performed. There is no evidence of ascites or lymphadenopathy. Urinary bladder unremarkable. No pelvic mass seen. Impression: Constipation. No other acute abnormality. Reviewed, dictated and finalized at [facility]. Impression: Constipation. No other acute abnormality.
[2024-07-04 07:29] VITALS: BP 102/70; PULSE 56; RESP 15; TEMP 36.6; O2SAT 99
[2024-07-04 08:14] VITALS: BP 112/57; PULSE 73; RESP 16; O2SAT 100
[2024-07-04 08:28] LABS: Basophils Percent Auto 0.7 % (0.2-1.2); Eosinophils Percent Auto 0.2 % (0-4.4); Hematocrit 38.9 % (37.0-47.0); Hemoglobin 12.8 g/dL (12.0-15.0); Immature Granulocyte Absolute 0.01 K/mm3 (0.00-0.031); Immature Granulocyte Percent A 0.2 % (0-0.5); Lymphocytes Absolute Auto 0.69 K/mm3 (0.9-3.2); Lymphocytes Percent Auto 17.2 % (18.3-44.2); Mean Corpuscular HGB Conc 32.9 g/dl (32-36); Mean Corpuscular Hemoglobin 32.7 pg (26-34); Mean Corpuscular Volume 99.2 fl (80-100); Mean Platelet Volume 9.5 fl (7.4-10.4); Monocytes Absolute Auto 0.2 K/mm3 (0.1-0.6); Monocytes Percent Auto 5.5 % (2.6-8.5); Neutrophils Absolute Auto 3.1 K/mm3 (1.3-6.7); Neutrophils Percent Auto 76.2 % (45.5-73.1); Platelet Count Result 264 k/mm3 (150-375); Red Blood Count 3.92 M/mm3 (4.2-5.4); Red Cell Distribution Width 12.2 % (11.5-14.5)
[2024-07-04 08:47] LABS: Alanine Aminotransferase 32 U/L (6-35); Albumin Level 4.3 g/dL (3.5-5.1); Alkaline Phosphatase 38 U/L (38-126); Anion Gap 5 mmol/L (4-12); Aspartate Amino Transferase 30 U/L (14-36); Bilirubin,Total 0.4 mg/dL (0.2-1.3); Blood Urea Nitrogen 12 mg/dL (7-17); Calcium 8.6 mg/dL (8.4-10.2); Carbon Dioxide 27 mmol/L (22-30); Chloride 99 mmol/L (98-107); Estimated CRCL calculation 89 ml/min; Estimated Glomerular Filt Rate > 60; Glucose 116 mg/dL (65-110); Potassium 4.2 mmol/L (3.4-5.0); Sodium 131 mmol/L (137-145)
--- NOTE | 2024-07-04 09:21 | ED.ABDPAIN ---
HPI - Abdominal Pain General Chief Complaint: Abdominal Pain Stated Complaint: R flank pain Time Seen by Provider: 07/04/24 08:38 History of Present Illness HPI narrative: This is a 59-year-old female who presents to the emergency room with right flank pain. Patient states she is having intense muscle spasms sensation in her right flank that this not radiate anywhere. Patient has no history of renal pathology a gallstones. She states she has tried several medications at home including a muscle relaxer, cannabidiol gummy, gabapentin without any release of pain. Patient states the pain woke her up was intense throughout the night. She was provided morphine in row which helped slightly. Denies any nauseous, vomiting, abdominal pain, dysuria, hematuria, GI symptoms otherwise. Denies any chest pain shortness a breath. Was previously in her normal state of health. Related Data Home Medications Medication Instructions Recorded Confirmed amino acids ea PO 06/12/22 06/12/22 garlic PO 06/12/22 06/12/22 jcwkizdc-xhc-yizq-FA-lutein PO 06/12/22 06/12/22 [Multivitamin Women 50 Plus] phytonadione (vitamin K1) PO 06/12/22 06/12/22 Allergies Allergy/AdvReac Type Severity Reaction Status Date / Time No Known Allergies Allergy Verified 07/04/24 07:34 Review of Systems Review of Systems: As reviewed above in HPI PMFSH Past Medical History Medical History Altered bowel habits Breast cancer screening by mammogram normal mammogram 06/27/2024. Encounter to establish care No significant past medical history Rash and nonspecific skin eruption Skin tag Surgical History Surgical History H/O breast augmentation History of endometrial ablation Hx of cholecystectomy Hx of LASIK Hx of rhinoplasty Hx of tubal ligation Family History Family History Mother Hypertension Family history of malignant neoplasm of cervix Family history of malignant neoplasm of ovary Grandparent Cerebrovascular accident Family history of malignant neoplasm of breast Father Hypertension Social History Social History Smoking status: Never smoker Second hand tobacco smoke exposure: No Alcohol intake: current Substance use: never Gender identity (if verbalized by the patient): Female Exam Narrative: GENERAL: [Well-appearing, well-nourished, and in no acute distress.] HEAD: [Normocephalic, atraumatic.] EYES: [PERRLA and EOMI.] ENT: Nares clear, no rhinorrhea or epistaxis. Mucous membranes moist. NECK: Supple. CHEST: [Clear to auscultation. No respiratory distress.] HEART: [Regular rate and rhythm]. No murmur heard. [Normal peripheral pulses.] ABDOMEN: [Soft, nondistended], [nontender], [No rigidity or guarding] EXTREMITIES: Focal tenderness to palpation in the right paraspinal muscles of the thoracolumbar region. Ten spasming sensation is noted, no CVA tenderness. Full range of motion of the extremities. SKIN: Warm, dry, no rash. NEURO: [No focal deficits]. Alert and oriented [x3.] PSYCH: [Normal mood and affect.] Course Vital Signs Vital signs: Vital Signs Temperature 36.6 C 07/04/24 07:29 Pulse Rate 56 L 07/04/24 07:29 Respiratory Rate 15 07/04/24 07:29 Blood Pressure 102/70 07/04/24 07:29 Pulse Oximetry 99 07/04/24 07:29 Oxygen Delivery Room Air 07/04/24 07:29 Temperature 36.6 C 07/04/24 07:29 Pulse Rate 73 07/04/24 08:14 Respiratory Rate 16 07/04/24 08:14 Blood Pressure 112/57 L 07/04/24 08:14 Pulse Oximetry 100 07/04/24 08:14 Oxygen Delivery Room Air 07/04/24 07:29 MDM - Abdominal Pain MDM Narrative Medical decision making narrative: This is a 59-year-old female presenting with right flank pain describ
[2024-07-04] MEDS: KETOROLAC 15 MG/ML VIAL (*BKC) IV PUSH (09:28)
[2024-07-04] MEDS: methocarbamoL 500 MG TABLET 1000 MG PO (09:28)
[2024-07-04] MEDS: LIDOCAINE 5% PATCH 1 PATCH TRANSDERM (09:29)
[2024-07-04] MEDS: fentaNYL CITRATE INJ (*CRX) 100 MCG/2 ML VIAL 50 MCG IV PUSH (11:38)
[2024-07-04] MEDS: dexAMETHasone SOD PHOS INJ 10 MG/ML 1 ML VIAL IV PUSH (11:38)
[2024-07-04 11:43] VITALS: BP 114/64; PULSE 77; RESP 18; O2SAT 99
== END 2024-07-04 12:02 | disposition home or self-care (01) ==
PROVIDERS: Emergency Provider Student in an Organized Health Care Education/Training Program; PCP Family Medicine
DX: M54.9 Dorsalgia, unspecified (principal); R10.9 Unspecified abdominal pain
CPT/HCPCS: 36415; 74176; 80053; 85025; 96374; 96375; 99284; A9270; J1100; J1885; J3010

== ENCOUNTER 2025-07-05 10:07 | Outpatient (CLI) | payer OTHER, SELFPAY ==
--- NOTE | ~2025-07-05 | MM_ITS ---
EXAMINATION: MM scrn fco implant BI w venkat INDICATION: Asymptomatic, referred for screening mammogram COMPARISON: 06/27/2024 through 02/28/2019 TECHNIQUE: Digital Breast Tomosynthesis CC, MLO, and implant displaced CC and MLO views of Both breasts were obtained with computer-aided detection to assist in interpretation of the study. FINDINGS: There are scattered areas of fibroglandular density. Bilateral breast Retropectoral Saline implants in place appears intact. No focal dominant mass, architectural distortion, or suspicious microcalcifications are identified. There are no features to suggest malignancy. IMPRESSION: 1. No evidence of malignancy in the breasts. 2. Both breasts Retropectoral Saline implants appears intact. Recommend continued screening mammography BI-RADS 2, BENIGN Reviewed, dictated and finalized at location B.
--- OUTSIDE RECORDS SUMMARY | 2025-07-05 10:32 | XMS_ITS | Clinical Summary ---
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
--- OUTSIDE RECORDS SUMMARY | 2025-07-05 10:33 | XMS_ITS | Clinical Summary ---
Author Organization [facility] Address [address] [place] [address] Care Team Providers Care Pedigree Researcher Name Role Phone Unavailable Primary Care Provider Unavailabl e Source Comments [facility],non-owned Affiliates and Associated Physician Practices is amultiple site organization consisting of ambulatory clinics and hospital sitesin [place], [place], [place] and [place]. This disclosure is being madepursuant to the Care Everywhere program and may not contain all information available regarding this patient. Last updated 18.[facility] Allergies No known active allergies Medications * Be aware that medications may not be up to date on this document. Alwaysverify current medications with the patient. Multiple Vitamins-Minera ls (MULTIVITAMIN ADULTS PO) Take 1 tablet by mouth once daily Active Amino Acids (AMINOS PO) Take 1 tablet by mouth once daily Active Sodium Hyaluronate, oral, (HYALURONIC ACID PO) Take 1 tablet by mouth once daily Active GARLIC 1500 PO Take 1 tablet by mouth once daily Active Bacillus Coagulans-Inuli n (PROBIOTIC-PREB IOTIC) 1-250 BILLION-MG CAPS capsule Take 1 (one) capsule by mouth once daily Active ipratropium (Atrovent) 0.06 % nasal sprayIndication s:Rhinorrhea [place] 2 (two) sprays into each nostril 3 times daily 15 mL 3 3 Active Additional Information Patient not taking.Reported on 02/02/2024 furosemide (Lasix) 20 MG tablet Take 1 (one) tablet by mouth once daily 3 Active oxyCODONE-aceta minophen (Percocet) 5-325 MG tabletIndicatio ns:Vasomotor rhinitis Take 1 (one) tablet by mouth every 4 hours as needed for Pain 4 tablet 4 Active cyclobenzaprine (Flexeril) 10 MG tablet Take 1 (one) tablet by mouth 3 times daily as needed FOR MUSCLE SPASM 4 Active diazePAM (Valium) 5 MG tablet Take 1 (one) tablet by mouth once 4 Active naproxen (Naprosyn) 375 MG tablet Take 1 (one) tablet by mouth 2 times daily 4 Active Active Problems Problem Noted Date Diagnosed Date Vasomotor rhinitis 02/02/2024 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 Resolved Problems Problem Noted Date Diagnosed Date Resolved Date Acute vaginitis 11/15/2015 02/02/2024 04/22/2024 Overview (02/02/2024): Acute vaginitis;Practice ID: [id number] Encounters Date Type Department Care Team Description 05/29/2025 Travel 04/04/2025 Travel from Last 3 Months Immunizations Immunization Administration Dates Next Due Covid Moderna primary monova lent 12+ yr 0.5mL 10/01/2021,01/27/2021,12/30/2020 Covid Pfizer primary monoval ent 12+ yr 0.3mL Purple cap 11/26/2023 Family History Medical History Relation Name Comments Hypertension Father Cancer - Other Mother Glaucoma Mother Hypertension Mother Relation Name Status Comments Father Mother Social History Tobacco Use Types Packs/Day Years Used Date Smoking Tobacco: Never Smokeless Tobacco: Never Alcohol Use Standard Drinks/Week Comments Yes 0 (1 standard drink = 0.6 oz pur e alcohol) social AUDIT-C Answer Date Recorded Q1: How often do you have a drink containing alc ohol? Never 12/25/2021 Average Number of Drinks Not on file 022 Frequency of Binge Drinking Not on file 12/10 Comments No Sex and Gender Information Value Date Recorded Sex Assigned at Not on file Legal Sex Female 11:49 AM CDT Gender Identity Not on file Sexual Orientation Not on file Last Filed Vital Signs Vital Sign Reading Time Taken Comments Blood Pressure 114/69 12/25/2021 2:15 PM ADMINISTRATION ASSISTANT Pulse 78 12/25/2021 2:15 PM ADMINISTRATION ASSISTANT Temperature 36.3 C (97.4 F) 12/25/2021 1:30 PM ADMINISTRATION ASSISTANT Respiratory Rate 15 12/25/2021 2:15 PM ADMINISTRATION ASSISTANT Oxygen Saturation 98% 12/25/2021 2:15 PM ADMINISTRATION ASSISTANT Inhaled Oxygen Concentration - - Weight 68 kg (150 lb) 04/19/2024 9:34 AM CDT Height 175.3 cm (5' 9) 04/19/2024 9:34 AM CDT Body Mass Index 22.15 04/19/2024 9:34 AM CDT Plan of Treatment Upcoming Encounters Date Type Department Care Team (Late st Contact Info) Description 07/18/2025 11:00 AM CDT Office Visit [facility] - ENT [address] [place] [phone] Pablo Wolf MD [address] [place] [address] [place] [address] Health Maintenance Due Date Last Done Comments COLOGUARD (AGES 45-75) - COLON CA SCREENING 1965 COLON MONITORING 1965 COLONOSCOPY - COLON CA SCREENING 1967 CT COLONOGRAPHY - COLON CA SCREENING 1965 Colorectal Cancer Screening 1965 FIT - COLON CA SCREENING 1965 FLEX SIG - COLON CA SCREENING 1965 MAMMOGRAM 1965 HIV SCREENING 1982 HEPATITIS C SCREENING 01/04/1985 DTAP/TDAP/TD VACCINES (1 - Tdap) 1986 HEPATITIS B VACCINE (1 of 3 - 19+ 3-dose series) 1986 PAP SMEAR 01/10/1988 PNEUMOCOCCAL VACCINE 50+ (1 of 1 - PCV) 2017 ZOSTER VACCINE (1 of 2) 2017 COVID-19 VACCINE ( - season) 2024 11/26/2023, 10/01/2021, 01/27/2021, Additional history exists DEPRESSION SCREENING 11/09/2024 INFLUENZA VACCINE (#1) 2025 LIPID TESTING 02/18/2026 02/18/2021 HIB VACCINE Aged Out No longer eligi ble based on patient's age to complete this topic HPV VACCINE Aged Out No longer eligi ble based on patient's age to complete this topic MENINGOCOCCAL (Group B) VACCINE SHARED DECISION-MAKING Aged Out No longer eligible based on patient's age to complete this topic MENINGOCOCCAL GROUPS A/C/Y/W VACCINE Aged Out No longer eligible based on patient's age to complete this topic Insurance [facility]
== END 2025-07-05 10:08 | disposition home or self-care (01) ==
LOC: CHSIMG 10:10
PROVIDERS: PCP Family Medicine; Visit Provider Obstetrics & Gynecology
DX: Z12.31 Encounter for screening mammogram for malignant neoplasm of breast (principal)
CPT/HCPCS: 77063; 77067

== ENCOUNTER 2025-08-23 14:30 | Outpatient (CLI) | payer OTHER, SELFPAY ==
--- NOTE | ~2025-08-23 | XR_ITS ---
EXAMINATION: XR shoulder RT min 2V, 08/23/2025 14:45 CDT HISTORY: M25.511 - Pain in right shoulder RECENT STRESS LIFTING COMPARISON: No comparisons available. Findings: Moderate osteopenia. Moderate degenerative changes. Soft tissues unremarkable. Impression: No acute fracture or malalignment. Reviewed, dictated and finalized at location P. Impression: No acute fracture or malalignment.
--- OUTSIDE RECORDS SUMMARY | 2025-08-23 16:51 | XMS_ITS | Clinical Summary ---
Author Organization [facility] Address [address] [place] [address] Care Team Providers Care Cotton Stripper Name Role Phone Chris Valdovinos MD Primary Care Provider [phone] Source Comments [facility],non-owned Affiliates and Associated Physician Practices is amultiple site organization consisting of ambulatory clinics and hospital sitesin [place], [place], [place] and [place]. This disclosure is being madepursuant to the Care Everywhere program and may not contain all information available regarding this patient. Last updated 18.[facility] Allergies No known active allergies Medications * [...] ipratropium (Atrovent) 0.06 % nasal sprayIndication s:Rhinorrhea [place] 2 (two) sprays into each nostril 3 [...] Type Department Care Team Description 05/29/2025 Travel from Last 3 Months Immunizations Immunization [...] Comments Blood Pressure 114/69 12/25/2021 2:15 PM VIDEO ENGINEER Pulse 78 12/25/2021 2:15 PM VIDEO ENGINEER Temperature 36.3 C (97.4 F) 12/25/2021 1:30 PM VIDEO ENGINEER Respiratory Rate 15 12/25/2021 2:15 PM VIDEO ENGINEER Oxygen Saturation 98% 12/25/2021 2:15 PM VIDEO ENGINEER Inhaled Oxygen Concentration - - Weight 68 kg (150 lb) 04/19/2024 9:34 AM CDT Height 175.3 cm (5' 9) 04/19/2024 9:34 AM CDT Body Mass Index 22.15 04/19/2024 9:34 AM CDT Plan of Treatment Health Maintenance Due Date Last Done Comments [...] 2017 ZOSTER VACCINE (1 of 2) 2017 DEPRESSION SCREENING 11/09/2024 COVID-19 VACCINE ( season) 2025 11/26/2023, 10/01/2021, 01/27/2021, Additional history exists INFLUENZA VACCINE (#1) 2025 LIPID TESTING 02/18/2026 [...] age to complete this topic Insurance [facility] Care Teams Cotton Stripper Relationship Specialty Start Date End Date Chris Valdovinos MD [address] [place] [address] PCP - General Family Medicine 07/12/25
--- OUTSIDE RECORDS SUMMARY | 2025-08-23 16:51 | XMS_ITS | Encounter Summary ---
Author Organization [facility] Address [facility] [place] [address] Care Team Providers Care Pharmacognosy Teacher Name Role Phone None, Provider Primary Care Provider Chris Will MD Primary Care Provider [phone] Encounter Details Date Type Department Care Team (Late st Contact Info) Description 12/07/[address] [facility] [place] [place] [id number] Jd Ortiz MD [address] [place] [address] [phone] Social History Tobacco Use Types Packs/Day Years Used Date Smoking Tobacco: Never Smokeless Tobacco: Never Alcohol Use Standard Drinks/Week Comments Not Currently 0 (1 standard drink = 0.6 oz pur e alcohol) AUDIT-C Answer Date Recorded Q1: How often do you have a drink containing alc ohol? Never 12/07/2020 Average Number of Drinks Not on file 021 Frequency of Binge Drinking Not on file 11/10 Comments No Sex and Gender Information Value Date Recorded Sex Assigned at Female 05/04/2025 12:53 PM CDT Legal Sex Female 7:08 PM CDT Gender Identity Female 05/19/2025 3:16 PM CDT Sexual Orientation Straight 05/19/2025 3: 16 PM CDT COVID-19 Exposure Response Date Recorded In the last month, have you been in contact with someone who was confirmed or suspected to have Coronavirus / COVID-19? No / Unsure 12/07/2020 10:54 AM [facility] [employer] documented as of this encounter Functional Status documented as of this encounter Plan of Treatment Not on file documented as of this encounter Results * PRE-SURGICAL/PRE-PROCEDURE CORONAVIRUS (COVID 19) (12/09/2020 10:28 AM [facility]) CORONAVIRUS SARS COV 2 PCR (RESP) NOT DETECTED NOT DETECTED 12/10/2020 10:56 AM [employer] Comment: A Not Detected (negative) test result for this test means that SARS- CoV-2 RNA was not present in the specimen above the limit of detection. A negative result does not rule out the possibility of COVID-19 and should not be used as the sole basis for treatment or patient management decisions. If COVID-19 is still suspected, based on exposure history together with other clinical findings, re-testing should be considered in consultation with public health authorities. Laboratory test results should always be considered in the context of clinical observations and epidemiological data in making a final diagnosis and patient management decisions. Please review the Fact Sheets and FDA authorized labeling available for health care providers and patients using the following websites: https://[email or web address]/home/Covid-19/HCP/[facility]/fact- sheet.html [email or web address]://[email or web address]/home/Covid-19/Patients/ [employer]/fact-sheet.html This test has been authorized by the FDA under an Emergency Use Authorization (EUA) for use by authorized laboratories. Due to the current public health emergency, [facility] is receiving a high volume of samples from a wide variety of swabs and media for COVID-19 testing. In order to serve patients during this public health crisis, samples from appropriate clinical sources are being tested. Negative test results derived from specimens received in non-commercially manufactured viral collection and transport media, or in media and sample collection kits not yet authorized by FDA for COVID-19 testing should be cautiously evaluated and the patient potentially subjected to extra precautions such as additional clinical monitoring, including collection of an additional specimen. Methodology: Nucleic Acid Amplification Test (NAAT) includes RT-PCR or TMA Additional information about COVID-19 can be found at the [facility] website: [email or web address].com/Covid19. Test performed at [facility] [address] [place] [address] Director: MATY DURAN DO,MPH FIRST TEST NO 12/09/2020 10:47 AM [facility] EMPLOYED IN HEALTHCARE NO 12/09/2020 10:47 AM [facility] SYMPTOMATIC DEFINED BY CDC NO 12/09/2020 10:47 AM [facility] DATE OF SYMPTOM ONSET UNKNOWN 12/09/2020 10:48 AM [facility] HOSPITALIZATION STATUS NO 12/09/2020 10:47 AM [facility] PATIENT IN ICU NO 12/09/2020 10:47 AM [facility] RESIDENT OF [facility] NO 12/09/2020 10:47 AM [facility] NOT 12/09/2020 10:47 AM [facility] PATIENT'S RACE WHITE OR 12/09/2020 10:47 AM [facility] ETHNICITY NONHISPANIC 12/09/2020 10:47 AM [facility] SOURCE (QST) NASOPHARYNGEAL SWAB 12/09/2020 10:47 AM [facility] NASOPHARYNGEAL SWAB / Unknown 12/09/2020 10:28 AM [employer] Jd Ortiz MD MICROBIOLOGY - GENERAL OR DERABLES Final Result [facility] [address] [place] [address], [place] [phone] [facility] [id number] [place] [id number], [place] documented in this encounter Visit Diagnoses Diagnosis Pre-op exam- Primary Preoperative examination, unspecified documented in this encounter Additional Health Concerns Infection Onset Date Last Indicated Resolved Time COVID-19 Rule Out 12/09/2020 12/09/2020 12/10/2020 10:56 AM [facility] COVID-19 Rule Out 02/24/2021 02/24/2021 02/25/2021 10:47 AM CDT documented as of this encounter Care Teams Pharmacognosy Teacher Relationship Specialty Start Date End Date None, Provider, PCP - General 11/14/20 05/03/25 Chris Valdovinos MD [address] [place] [address] [address] [place] [address] PCP - General FAMILY PRACTICE 05/04/25 documented as of this encounter
--- OUTSIDE RECORDS SUMMARY | 2025-08-23 16:51 | XMS_ITS | Data Portability ---
Author Organization [facility] [place] Address [address] [place] [address] [place] [address] Assessment Encounter Date Assessment Date Assessment LastModified by Organization Details LastModified Time 03/14/2020 03/14/2020 Annual gynecological exam performed. Patient will come back in a year unless there are new symptoms. [email or web address] Not available 03/14/2020 12:23:16 05/30/2020 05/30/2020 Annual gynecological exam performed. Patient will come back in a year unless there are new symptoms. [email or web address] Not available 05/30/2020 15:10:11 Plan of Treatment Reminders Order Date Submit Date Provider Last Modified By Organization Details Last Modified Time Details Appointments None recorded. Lab urinalysis , dipstick 2019 020 [facility], [address], [place], [address], 0 15:25:48 CMP, serum or plasma 2019 020 [facility]), [address], [address], [place], [address], 0 14:29:36 CBC 2019 020 [facility]), [address], [address], [place], [address], 0 14:29:35 lipid panel, serum 2019 [facility] ([facility]), [address] , [address], [place], [address], 0 14:29:35 TSH, serum or plasma 2019 020 [facility] ([facility]), [address], [place], [address], 0 14:29:36 vitamin D, 25-hydroxy , total, serum 2019 020 [facility] ([facility]), [address] , [address], [place], [address], 0 14:29:37 urinalysis , dipstick 2019 020 [email or web address] [place], [address], [address], [place], [address], 0 16:39:54 Referral None recorded. Procedures None recorded. Surgeries None recorded. Imaging MAMMO, screening, bilateral 2019 britni Flores MD, [address], [place], [address], 1 17:16:33 Medication Orders Prempro 0.45 mg-1.5 mg tablet 2019 [id number], [address], [place], [id number], 0 10:36:08 Wellbutrin XL 150 mg 24 hr tablet, extended release 2019 [facility] #27461, [address], [place], [id number], 0 11:44:18 Prempro 0.3 mg-1.5 mg tablet [address] [facility] #17359, [address], [place], [id number], 0 15:28:11 Prometrium 100 mg capsule [email or web address] [facility] #68383, [address], [place], [id number], 0 14:42:52 Patient TargetsNo targets recorded. Patient Instructions Encounter Date Encounter Id Patient Instructions Last Modified By Organization Details Last Modified Time 08/14/2020 [id number] [email or web address] Not available 11:44:25 Reason for Referral None Reported. Results Created Date Observation Date Name Description Value Unit Range Abnormal Flag Note LastModifiedBy Organization Detail LastModifiedTime 03/14/20 20 03/15/2020 lipid panel , serum cholesterol 197 mg/dL <200 Not Available [facility] ([facility]) [address] [place] [address] [address], [place], [address], 03/15/2020 14:29:35 03/14/20 20 03/15/2020 lipid panel , serum triglyceride s 108 mg/dL <150 Not Available [facility] ([facility]) [address] [place] [address] [address], [place], [address], 03/15/2020 14:29:35 03/14/20 20 03/15/2020 lipid panel , serum HDL cholesterol 83 mg/dL >39 Not Available [facility] ([facility]) [address] [place] [address] [address], [place], [address], 03/15/2020 14:29:35 03/14/20 20 03/15/2020 lipid panel , serum cholesterol / HDL ratio 2.37 ratio 0.00-4 .44 Not Available [facility] ([facility]) [address] [place] [address] [address], [place], [address], 03/15/2020 14:29:35 03/14/20 20 03/15/2020 lipid panel , serum non-HDL cholesterol 114 mg/dL <130 Not Available [facility] ([facility]) [address] [facility], [place], [address], 03/15/2020 14:29:35 03/14/20 20 03/15/2020 lipid panel , serum LDL cholesterol (calculation ) 92 mg/dL <130 LDL Gabby stero l Level s Less than 100 mg/dL Optim al 100 to 129 mg/dL Near Optim al/ Above Optim al 130 to 159 mg/dL Borde rline High 160 to 189 mg/dL High 190 mg/dL and above Very High * Categ ories as recom claus d by the 2003 ATPII I guide lines Not Available [facility] ([facility]) [address] [facility], [place], [address], 03/15/2020 14:29:35 03/14/20 20 03/15/2020 lipid panel , serum LDL/HDL ratio 1.1 ratio <3.3 ___ LDL Gabby stero l Patie nt Histo ry ___ Test Date: 03/14 LDL Resul ts: 92 Units : mg/dL % Costa e: - ___ Note: Ameri can [employer] Assoc iatio n recom mends using total gabby stero l and HDL numbe rs rathe r than ratio s for patie nt class ifica tion. New guide lines from AHA/A CC recom mend again st using speci fic LDL targe ts for patie nt manag ement . Rathe r a perce ntage decre ase is the ruthie ed patie nt manag ement algor ithm, betwe en 30% and 50% reduc tion. If you would like to have your patie nts Cardi ovasc ular Risk Asses sment class ifica tion (per 2013 AHA/A CC guide lines ) 10-ye ar ASCVD score , osmar e order the ASCVD Advan efrain Lipid Profi le (LIPC VD). Not Available [facility] ([facility]) [address] [place] [address] [address], [place], [address], 03/15/2020 14:29:35 03/14/20 20 03/15/2020 CBC WBC 5.8 K/uL 3.8-11 .5 Not Available [facility] ([facility]) [address] [place] [address] [address], [place], [address], 03/15/2020 14:29:35 03/14/20 20 03/15/2020 CBC red blood cell count (RBC) 4.08 M/mm3 3.60-5 .30 Not Available [facility] ([facility]) [address] [place] [address] [address], [place], [address], 03/15/2020 14:29:35 03/14/20 20 03/15/2020 CBC hemoglobin (HGB) 13.1 gm/dL 11.5-1 5.5 Not Available [facility] ([facility]) [address] [place] [address] [address], [place], [address], 03/15/2020 14:29:35 03/14/20 20 03/15/2020 CBC hematocrit (HCT) 39.9 % 35.2-4 6.4 Not Available [facility] ([facility]) [address] [place] [address] [address], [place], [address], 03/15/2020 14:29:35 03/14/20 20 03/15/2020 CBC MCV 97.8 fL 79.0-9 9.0 Not Available [facility] ([facility]) [address] [place] [address] [address], [place], [address], 03/15/2020 14:29:35 03/14/20 20 03/15/2020 CBC MCH 32.1 pg 26.9-3 5.0 Not Available [facility]) [address] [place] [address] Dr [address], [place], [address], 03/15/2020 14:29:35 03/14/20 20 03/15/2020 CBC MCHC 32.8 g/dL 30.4-3 4.8 Not Available [facility] ([facility]) [address] [place] [address] [address], [place], [address], 03/15/2020 14:29:35 03/14/20 20 03/15/2020 CBC RDW 43.6 fL 38.6-5 3.8 Not Available [facility]) [address] [place] [address] Dr [address], [place], [address], 03/15/2020 14:29:35 03/14/20 20 03/15/2020 CBC platelet count 295 K/cum m 137-39 7 Not Available [facility] ([facility]) [address] [place] [address] Dr [address], [place], [address], 03/15/2020 14:29:35 03/14/20 20 03/15/2020 CMP, serum or plasm a sodium 143 mEq/L 135-14 5 Not Available [facility] ([facility]) [address] [place] [address] Dr [address], [place], [address], 03/15/2020 14:29:36 03/14/20 20 03/15/2020 CMP, serum or plasm a potassium 4.4 mEq/L 3.5-5. 3 Not Available [facility] ([facility]) [address] [place] [address] [address], [place], [address], 03/15/2020 14:29:36 03/14/20 20 03/15/2020 CMP, serum or plasm a chloride 102 mEq/L 97-108 Not Available [facility]) [address] [place] [address] [address], [place], [address], 03/15/2020 14:29:36 03/14/20 20 03/15/2020 CMP, serum or plasm a CO2 29 mEq/L 22-32 Not Available [facility]) [address] [place] [address] [address], [place], [address], 03/15/2020 14:29:36 03/14/20 20 03/15/2020 CMP, serum or plasm a glucose 71 mg/dL 65-99 Not Available [facility]) [address] [place] [address] [address], [place], [address], 03/15/2020 14:29:36 03/14/20 20 03/15/2020 CMP, serum or plasm a BUN 10 mg/dL 6-20 Not Available [facility] ([facility]) [address] [place] [address] Dr [address]as, [place], [address], 03/15/2020 14:29:36 03/14/20 20 03/15/2020 CMP, serum or plasm a creatinine 0.89 mg/dL 0.50-1 .00 Not Available [facility] ([facility]) [address] [place] [address] [address], [place], [address], 03/15/2020 14:29:36 03/14/20 20 03/15/2020 CMP, serum or plasm a calcium 9.7 mg/dL 8.6-10 .4 Not Available [facility] ([facility]) [address] [place] [address] Dr [address]as, [place], [address], 03/15/2020 14:29:36 03/14/20 20 03/15/2020 CMP, serum or plasm a protein 7.1 g/dL 6.0-8. 3 Not Available [facility] ([facility]) [address] [place] [address] Dr [address]as, [place], [address], 03/15/2020 14:29:36 03/14/20 20 03/15/2020 CMP, serum or plasm a albumin 4.6 g/dL 3.5-5. 3 Not Available [facility] ([facility]) [address] [place] [address] Dr [address]as, [place], [address], 03/15/2020 14:29:36 03/14/20 20 03/15/2020 CMP, serum or plasm a alkaline phosphatase 43 IU/L 35-121 Not Available [facility] ([facility]) [address] [place] [address] Dr [address]as, [place], [address], 03/15/2020 14:29:36 03/14/20 20 03/15/2020 CMP, serum or plasm a ALT (SGPT) 17 IU/L <5-47 Not Available [facility] ([facility]) [address] [place] [address] Dr [address], [place], [address], 03/15/2020 14:29:36 03/14/20 20 03/15/2020 CMP, serum or plasm a AST (SGOT) 20 IU/L <5-40 Not Available [facility] ([facility]) [address] [place] [address] Dr [address]as, [place], [address], 03/15/2020 14:29:36 03/14/20 20 03/15/2020 CMP, serum or plasm a bilirubin, total 0.4 mg/dL <0.2-1 .2 Not Available [facility]) [address] [place] [address] Dr [address]as, [place], [address], 03/15/2020 14:29:36 03/14/20 20 03/15/2020 CMP, serum or plasm a A/G ratio 1.8 mg/dL 1.1-2. 5 Not Available [facility]) [address] [place] [address] Dr [address]as, [place], [address], 03/15/2020 14:29:36 03/14/20 20 03/15/2020 GFR, estim ated (eGFR ), serum estimated GFR (black) 86 mL/mi n/1.7 3m2 >59 Not Available [facility] ([facility]) [address] [place] [address] Dr [address], [place], [address], 03/15/2020 14:29:36 03/14/20 20 03/15/2020 GFR, estim ated (eGFR ), serum estimated GFR (other) 74 mL/mi n/1.7 3m2 >59 GFR Categ ories in Chron ic Kidne y Disea se (CKD) GFR Categ ory GFR (mL/m in/1. 73 sq. meter s) Inter preta tion G1 90 or great er Shanice l or high* G2 60-89 Mild decre ase* G3a 45-59 Mild to moder ate decre ase G3b 30-44 Moder ate to sever e decre ase G4 15-29 Sever e decre ase G5 14 or less Kidne y failu re *In the absen ce of enrique valdez er GFR categ ory G1 or G2 fulfi ll the crite dc for CKD (Adithya ey Int Suppl 2013; 3.1-1 50) The CKD-E PI calcu latio n is inten ded for use in patie nts 18 years of age and older . Decre ased calcu latio n accur acy may be seen in patie nts takin g medic ation s that affec t renal excre tion, or in those patie nts with extre mes in muscl e mass or diet. Not Available [facility] ([facility]) [address] [place] [address] Dr [address]as, [place], [address], 03/15/2020 14:29:36 03/14/20 20 03/15/2020 TSH, serum or plasm a TSH reflex to FT4 1.51 mU/L 0.27-4 .20 Not Available [facility] ([facility]) [address] [place] [address] Dr [address]as, [place], [address], 03/15/2020 14:29:36 03/14/20 20 03/15/2020 vitam in D, 25-hy droxy , total , serum vitamin D 25-hydroxy 34.7 NG/mL 30.0-1 00.0 Inter preta tion of Vitam in D 25 OH: < 20 ng/mL - Defic iency 20 - 29 ng/mL - Insuf ficie ncy 30 - 100 ng/mL - Suffi cienc y > 100 ng/mL - Super -ther apeut ic- toxic ity may occur above this level . Clini saima corre latio n requi red. Not Available [facility] ([facility]) [address] [place] [address] Dr Haas, [place], [address], 03/15/2020 14:29:37 03/14/20 20 03/15/2020 pap, LB Pap test thin prep Negati ve for Intrae pithel ial Lesion or Malign juan josé normal ACCES FLACO #: [id number] Sourc e: Cervi saima/E ndoce rvica l LMP: 11/09 Date Taken : 03/14 Speci men Type: ThinP rep Vial Date Repor navi: 020 Clini saima Data: Cytot ech: Kaitl in M. Bhatti , CT( CP) Date Repor navi: 020 Speci men Adequ acy: Satis facto ry for evalu ation Endoc ervic al/tr ansfo rmati on zone compo nent prese nt Gener al Categ oriza tion: NEGAT AMANUEL FOR INTRA EPITH ELIAL JIMBO N OR ANDREINA LOVETT This speci men has been celso zed by the ThinP rep Imagi ng Syste m, an inter activ e compu ter syste m which anup ts the lab in the scree myah of ThinP rep Pap Test slide s. Follo wing imagi ng, the slide was revie wed by a Cytot echno logis t and/o r Patho logis t. D N A A S S A Y S R E P O R T TEST NAME RESUL TS ----- ---- ----- -- HPV High Risk Sabina walker (TMA) ThinP rep Vial The human papil lomav irus (HPV) High Risk Sabina walker is an FDA-a pprov ed in-vi tro ampli fied nucle ic acid test for the quali tativ e detec tion of E6/E7 viral mRNA. Resul ts shoul d be corre lated with patie nt prese ntati on, histo ry, cervi saima cytol ogy and other clini saima and labor atory findi ngs. See https ://Arria NLG/s ites/ defau lt/fi les/2 018-0 3/AW- 36616 _002_ 01.pd f for furth er infor charlie n. Test perfo rmed by [facility] d[facility]a [facility], [address], [place] [address] , Kyler Gonzales ra, DO, Labor atory Direc tor. HPV High Risk *HPV NOT DETEC NAVI (TYPE S 16, 18, 31, 33, 35, 39, 45, 51, 52, 56, 58, 59, 66, 68) *HPV: The human papil lomav irus (HPV) High Risk Sabina walker is an FDA-a pprov ed in-vi tro ampli fied nucle ic acid test for the quali tativ e detec tion of E6/E7 viral mRNA. Resul ts shoul d be corre lated with patie nt prese ntati on, histo ry, cervi saima cytol ogy and other clini saima and labor atory findi ngs. See https ://Arria NLG/s ites/ defau lt/fi les/2 018-0 3/AW- 78977 _002_ 01.pd f for furth er infor charlie n. Test perfo [facility]med by [facility], [address] [facility], [place] [address] , Kyler Gonzales ra, DO, [facility] [email or web address]. End of t Techn ical servi prabha provi ded by [facility], [facility], [address] [place] [address] Laci Aguirre MD, [facility] [employer]. Case revie wed and diagn osis rende red at [facility], d/b/a [facility], [address] [place] [address] Laci Aguirre MD, [facility]. CONFI DENTI AL Not Available [facility] ([facility]) [address], [place], [address], 03/15/2020 16:54:40 03/14/20 20 03/15/2020 HPV DNA, high- risk HPV high risk NOT DETECT ED normal Not Available [facility] ([facility]) [address], [place], [address], 03/15/2020 16:54:41 03/14/20 20 03/14/2020 urina lysis , dipst ick Leukocytes trace Not Available Luisa sanders [address], [place], [address], 03/14/2020 12:27:25 05/04/20 MAMMO , scree myah, bilat eral No observ ation record ed. [email or web address] Not Available 0 05/04/2020 09:33:59 04/18/20 21 04/18/2021 MAMMO , scree myah, bilat eral No observ ation record ed. [facility] [address], [place], [address], 04/19/2021 17:53:46 Result Notes None recorded. 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) (routine) w/o abn findings;P ractice ID: 0001 Not Available [facility] 0 17:45:12 Screening for malignant neoplasm of cervix Active 2014 Screening for malignant neoplasms of the cervix;Rec orded Elsewhere: No Locatio n: [facility]: EHR Chroni c: N Practice ID: 0001 Billa ble Time: 01:30:00 PM Not Available [facility] 0 17:45:13 Acute vaginitis 87524266 Active 2015 Acute vaginitis; Practice ID: 0001 Not Available [facility] 0 17:45:12 Vaginolab ial hernia Active 2015 Other specified noninflamm atory disorders of vagina;Pra ctice ID: 0001 Not Available [facility] 0 17:45:12 Disease Active 2015 Oth cond assoc w female genital organs and menstrual cycle;Prac antonio ID: 0001 Not Available [facility] 0 17:45:12 Pelvic and perineal pain 444274344 Active 2015 Pelvic and perineal pain;Pract ice ID: 0001 Not Available [facility] 0 17:45:12 Finding of sensation of breast Active 2016 Mastodynia ;Recorded Elsewhere: No Locatio n: [facility] Vir[facility]: EHR Chroni c: N Practice ID: 0001 Billa ble Time: 04:00:00 PM Not Available [facility] 0 17:45:12 Finding of regularit y of menstrual cycle Active 2016 Irregular menstruati on, unspecifie d;Practice ID: 0001 Not Available [facility] 0 17:45:12 Screening for malignant neoplasm of rectum Active 2017 Encounter for screening for malignant neoplasm of rectum;Rec orded Elsewhere: No Locatio n: [facility] rce: EHR Chroni c: N Practice ID: 0001 Billa ble Time: 11:15:00 AM Not Available [facility] 0 17:45:12 Imaging result abnormal 571721611 Active 2017 Abnormal findings on diagnostic imaging of body structures ;Recorded Elsewhere: No Locatio n: [facility] rce: EHR Chroni c: N Practice ID: 0001 Billa ble Time: 03:43:12 PM Not Available [facility] 0 17:45:13 Menopause present 569123173 Active 2018 Symptoms such as flushing, sleeplessn ess, headache, lack of concentrat ion, associated with natural (age-relat ed) menopause; Recorded Elsewhere: No Locatio n: [facility] rce: EHR Chroni c: N Practice ID: 0001 Billa ble Time: 10:30:00 AM Not Available [facility] 0 17:45:[address] Concept Active 2018 Encntr for general adult medical exam w/o abnormal findings;R ecorded Elsewhere: No Locatio n: [facility] rce: EHR Chroni c: N Practice ID: 0001 Billa ble Time: 01:00:00 PM Not Available [facility] 0 17:45:12 Problem Notes None recorded. Procedures Surgical History Date Name Laterality Status Provider Name and Address Organization Details Recorded Time Tubal Ligation completed Nanci Mccurdy [facility] 03/14/2020 11:13:32 Imaging Results None recorded. Procedure Notes None recorded. Medical Equipment None Reported. Allergies No known drug allergies Medications Name Sig Start Date Stop Date Status Note LastModified by Organization Details LastModified Time venlafaxi ne ER 75 mg capsule,e xtended release 24 hr 05/30 completed Not Available Not Available Not Available paroxetin e 10 mg tablet take 1 tablet by oral route every day 11/26 completed Prescrib ed Elsewher e: No Locat ion: [facility] odify By: tmemeterio Marquez ncounter DateTime : 06/18/20 18 11:30:00 AM Not Available Not Available Not Available azithromy felicitas 250 mg tablet 05/30 completed Not Available Not Available Not Available Effexor XR 37.5 mg capsule,e xtended release take 2 capsule by oral route every day with food 2018 active Prescrib ed Elsewher e: No Locat ion: [facility]ify By: malorie Hernandez nter DateTime : 07/14/20 10:00:00 AM Not Available Not Available Not Available peg-elect rolyte solution 420 gram oral solution 05/30 completed Not Available Not Available Not Available estradiol 0.025 mg/24 hr weekly transderm al patch Apply 1 patch every week by transder mal route. 05/30 completed Not Available Not Available Not Available promethaz ine 25 mg tablet 05/30 completed Not Available Not Available Not Available gabapenti n 100 mg capsule TAKE 2 CAPSULE BY ORAL ROUTE 3 TIMES EVERY DAY 05/30 completed Not Available Not Available Not Available methylpre dnisolone 4 mg tablets in a dose pack 05/30 completed Not Available Not Available Not Available Vitamin D2 1,250 mcg (50,000 unit) capsule take 1 capsule by oral route every week for 8 weeks. 12/02 completed Prescrib ed Elsewher e: No Locat ion: [facility] odify By: [email or web address] z Encoun ter DateTime : 11/20/19 16 10:29:11 AM Not Available Not Available Not Available progester one micronize d 100 mg capsule Take 1 capsule every day by oral route for 30 days. 05/30 completed Not Available Not Available Not Available Prempro 0.45 mg-1.5 mg tablet Take 1 tablet every day by oral route for 30 days. 09/10 completed Not Available Not Available Not Available bupropion HCl XL 150 mg 24 hr tablet, extended release TK 1 T PO QD active Not Available Not Available No t Available Prempro 0.3 mg-1.5 mg tablet TAKE 1 TABLET BY MOUTH EVERY DAY 2020 active Not Available Not Available Not Avai lable Effexor XR 05/30 completed Not Available Not Available Not Available gabapenti n 05/30 completed Not Available Not Available Not Available Vitals Date Recorded Body height Body mass index (BMI) Body weight Systolic And Diastolic Provider Name and Address Organization Details Last Updated DateTime 03/14/2020 2103.12 cm 0.2 kg/m2 66356.26 g 110/78 mm[Hg] [facility] 03/14/2020 12:23:33 Date Recorded Body height Body mass index (BMI) Body weight Systolic And Diastolic Provider Name and Address Organization Details Last Updated DateTime 05/30/2020 2103.12 cm 0.2 kg/m2 79254.04 g 105/71 mm[Hg] [facility] 05/30/2020 15:02:11 Date Recorded Body mass index (BMI) Body weight Systolic And Diastolic Provider Name and Address Organization Details Last Updated DateTime 08/14/2020 0.2 kg/m2 14814.67 g 104/70 mm[Hg] [facility] 08/14/2020 11:24:55 Social History None recorded. Functional Status None recorded. Mental Status None recorded. Family History Relationship Description Onset Age of this Age Resolved Age Notes LastModified by Organization Details LastModified Time Mother Anemia [email or web address] Not available 11:11:35 Mother Ovarian cancer, disseminated [email or web address] Not available 04/2020 11:11:53 Mother Carcinoma in situ of uterus [email or web address] Not available 2019 11:12:15 Mother Hypertensive disorder [email or web address] Not available 2019 11:12:34 Maternal Grandmother Ovarian cancer, disseminated [email or web address] Not available 04/2020 11:11:53 Maternal Grandmother Carcinoma in situ of uterus [email or web address] Not available 2019 11:12:15 Maternal Grandmother Hypertensive disorder [email or web address] Not available 2019 11:12:34 Father Hypertensive disorder [email or web address] Not available 2019 11:12:34 Paternal Grandmother Diabetes mellitus [email or web address] Not available 2019 11:12:54 Paternal Grandmother Carcinoma in situ of breast [email or web address] Not available 2019 11:13:17 Maternal Grandfather Heart disease [email or web address] Not available 2019 11:13:02 Notes:Father: Hypertension M aternal grandfather: Heart disease Maternal grandmother: Hypertension, Cancer, ovarian, Cancer, uterine Mother: Cancer, uterine, Anemia, Cancer, ovarian, Hypertension Paternal grandmother: Diabetes mellitus, breast Medical History Condition Response Anemia Y Gynecological HistoryNo gynecological history recorded. Obstetrics History GPAL:G 0 P 0 0 0 0 Past Encounters Encounter ID Performer Location Encounter Start Date Encounter Closed Date Diagnosis/Indication Diagnosis SNOMED-CT Code Diagnosis ICD10 Code Diagnosis IMO Codes Diagnosis Note [id number] BÁRBARA [facility] [address] [address] 03/14/2020 12:18:36 03/14/2020 13:00:49 Adult health examination 981083283 Z00.00 No urinary sx's Menopausal symptom 44642 002 N95.1 HRT Therapy. We discussed E/P & P only therapy. All risks/bene fits of this therapy were discussed today. Patient meets criteria for use of E/P or P-only. Handouts/w ebsite resources were given for home review. Family Hx was reviewed. Family Hx ovarian cancer/wales rine cancer mother >age 55yo Family Hx HTN/heart Dz-patient has good personal health Hx and life style health. Peronal Hx of Endometria l Ablation Samples of Estrogel topically applicatio n given-to use 1 pump daily on forearm or thigh. Let dry completely . Prometrium nightly sent PO use for endometria l lining protection /night sweats. RTO x 3mos medication check. Gynecologi c examination 69391073 Z01.419 Take Calcium with Vitamin D 12-1500mg daily. Do monthly self breast exams. It is advised to get annual flu shot in the fall and she could obtain at [facility] or [facility] clinic. If you haven't received the Tdap vaccine in the last 10 years you should obtain one as well. Have mammogram yearly, bone density every 2-3 years and colonoscop y every 5-10 years depending on findings and history. Engage in daily exercise of low impact aerobic exercise 45-60 minutes 4-5 times weekly. Avoid tobacco and illicit drugs as well as using moderation with alcohol intake less than 1-2 8 oz beverages daily. This lifestyle behavior pattern will lead to less health conditions and longer life span. If BMI greater than 25 weight watchers or dietary consult advised. Questions have been answered. Patient appears to understand instructio ns, but if you have any further questions call or respond to this email Pap/HPV updated STD declined CBE done Mammo ordered Health labs ordered as interested in HRT. Screening mammography 24 433513 Z12.31 [id number] Kayla Gallwoay [facility] [address],[place] [address] 05/30/2020 14:57:31 05/30/2020 17:44:14 Adult health examination 216740134 Z00.00 No urinary sx's Menopausal symptom 07521 002 N95.1 HRT Therapy. We discussed E/P & P only therapy. All risks/bene fits of this therapy were discussed today. Patient meets criteria for use of E/P or P-only. Handouts/w ebsite resources were given for home review. Family Hx was reviewed. Family Hx ovarian cancer/wales rine cancer mother >age 55yo Family Hx HTN/heart Dz-patient has good personal health Hx and life style health. Peronal Hx of Endometria l Ablation INTACT UTERUS Failed trial of Estrogen gel & the patch will not stay on skin. We agreed on trial of Prempro low dose. If too expensive consider Bijuva or Estradiol 0.5mg coupled with prometrium 100mg. If this is not working she will consider stopping & doing prometrium alone possibly coupled with Lexapro (non-hormo nal). RTO x 3mos medication check. Time spent in visit is a total of 26 mins with at least 50% of visit consisting of counseling and review of plan of care. [id number] Kayla Galloway [facility] [address] [address] 08/14/2020 11:16:20 08/14/2020 12:28:09 Menopausal symptom 64879791 N95.1 After discussing progress today we agreed to increase to next dosage of prempro since she has almost full resolution of menopause vasomotor sx's. Sleeping better. No weight gain. Mood is great. Reduced libido 9403964 R 68.82 We agreed to trial of wellbutrin xl low dose. Counseled on medication R/B's, Most common side effects, & use. All questions were answered to patient satisfacti on. Counseled on r/b's, most common side effects of this therapy with instructio ns to stop medication with any significan t abnormal change in mood especially with thoughts of suicide/se lf-harm/shaw rm to others. Understand ing verbalized . Consider addition of testostero ne cream low dose compounded if wellbutrin does not work. Health Concerns Section Related Observation LastModified by Organization Detai ls LastModified Time None Recorded Concern Status LastModified by Organization Details LastModified Time None Recorded Advance Directives Directive None Recorded Payers Insurance Date Sequence Insurance Name Policy Number Policy Mcdaniels Covered Member ID Mcdaniels Member ID Guarantor Name 08/11/2020 1 [facility] (MEDICAID HMO) [id number] [id number] Notes Date Note Type Note Provider Name and Address Organization Details Recorded Time 0 text/html Annual GYNReported by PatientGenitourinary symptomsFor menstrual cycle, patient reportsnormal menses. For urinary symptoms, patient reportsno hematuriaandno incontinence. For vulva, patient reportsno genital lesion. For vagina, patient reportsnormal vaginal discharge.Breast symptomsFor breast, patient reportsno breast pain,no breast lump, andno nipple discharge.ContraceptionFo r current contraception, (post-menopausal).Endocri ne symptomsFor sexual complaints, patient reportsno sexual complaints,no pain during intercourse, andnormal libido. For menopausal symptoms, patient reportsno menopausal symptomsandnormal vaginal lubrication.Psychological symptomsFor psychological symptoms, patient reportsno depression,no anxiety, andno pmdd.Preventative measuresFor preventive measures, patient reportsencourage self breast examination,encourage regular exercise,encourage no tobacco use,encourage regular mammograms starting age 40,needs to schedule mammogram, andup to date on colonoscopy screening. Kayla Galloway, MONY-BC [address], [place], [address], [facility] 03/14/2020 13:07:59 0 text/html ROS as noted in the HPI Patient is here today to discuss HRT. She has tried estrogel & estrogen patch coupled with prometrium. Failed both estrogen methods. Patch would not stay adhered to skin Estrogel caused more hot flashes. Kayla Galloway, [facility]- [address], [place], [address], [facility] 05/30/2020 17:31:47 0 text/html ROS as noted in the HPI Patient is here today for medication check of Prempro for vasomotor sx's associated with menopause. She also mentions that she feels she has an issue having an orgasm/low desire. Prempro is working well but still with some hot flashes. States, I feel like we are almost there. Has had trouble having orgasm for years and now that she is in menopause feels it worse. Takes a lot of effort. Kayla Galloway MONY- [address], [place], [address], [facility] 08/14/2020 11:49:42 OBGyn Episode Ob Episode Information Episode Created Date Number of Fetuses Patient Bloodtype Patient rh Status Prepregnancy Weight lbs Domestic Partner Domestic Partner Phone Father Name Production Supervisor Off Shift Status 03/14/20 20 1 CLOSED Fetus Data First Name Last Name Admitted to NICU Weight (g) Sex Living Outcome Pediatric Complications Fetus ID Race Codes Race Delivery Type 1210 Vaginal Delivery Chuck Calculation Initial Chuck Date Initial Exam Date Initial Exam Provider Initial Ultrasound Date Last Menstrual Period Date Ultra Sound Weeks Gestation 0 Eighteen To Twenty Week Chuck Update Ultra Sound Date Fundal Height At Umbil Quickening Date Ultra Sound Latest Weeks Gestation Final Chuck Confirmed By Final Chuck Confirmed Date Final Chuck Date Ultra Sound Latest Days Gestation 0 0 Menstrual History Last Menstrual Date Menses Monthly On Bcp Conception Prior Menses Frequency Hcg Plus Date Menarche Onset Age Delivery Information Delivery Date Delivery Type Labor Anesthesia Weeks Gestation Incision Type Labor Labor Length Hrs Delivered By Post Complications Tubal Sterilization Discharge Date Comments 2 Discharge Information Feeding Method Contraceptive Method Maternal HG B and HCT Levels Ob Episode Information Episode Created Date Number of Fetuses Patient Bloodtype Patient rh Status Prepregnancy Weight lbs Domestic Partner Domestic Partner Phone Father Name Production Supervisor Off Shift Status 03/14/20 20 1 CLOSED Fetus Data First Name Last Name Admitted to NICU Weight (g) Sex Living Outcome Pediatric Complications Fetus ID Race Codes Race Delivery Type 1214 Chuck Calculation Initial Chuck Date Initial Exam Date Initial Exam Provider Initial Ultrasound Date Last Menstrual Period Date Ultra Sound Weeks Gestation 0 Eighteen To Twenty Week Chuck Update Ultra Sound Date Fundal Height At Umbil Quickening Date Ultra Sound Latest Weeks Gestation Final Chuck Confirmed By Final Chuck Confirmed Date Final Chuck Date Ultra Sound Latest Days Gestation 0 0 Menstrual History Last Menstrual Date Menses Monthly On Bcp Conception Prior Menses Frequency Hcg Plus Date Menarche Onset Age Delivery Information Delivery Date Delivery Type Labor Anesthesia Weeks Gestation Incision Type Labor Labor Length Hrs Delivered By Post Complications Tubal Sterilization Discharge Date Comments 5 missed Discharge Information Feeding Method Contraceptive Method Maternal HG B and HCT Levels Ob Episode Information Episode Created Date Number of Fetuses Patient Bloodtype Patient rh Status Prepregnancy Weight lbs Domestic Partner Domestic Partner Phone Father Name Production Supervisor Off Shift Status 03/14/20 20 1 CLOSED Fetus Data First Name Last Name Admitted to NICU Weight (g) Sex Living Outcome Pediatric Complications Fetus ID Race Codes Race Delivery Type 1212 Vaginal Delivery Chuck Calculation Initial Chuck Date Initial Exam Date Initial Exam Provider Initial Ultrasound Date Last Menstrual Period Date Ultra Sound Weeks Gestation 0 Eighteen To Twenty Week Chuck Update Ultra Sound Date Fundal Height At Umbil Quickening Date Ultra Sound Latest Weeks Gestation Final Chuck Confirmed By Final Chuck Confirmed Date Final Chuck Date Ultra Sound Latest Days Gestation 0 0 Menstrual History Last Menstrual Date Menses Monthly On Bcp Conception Prior Menses Frequency Hcg Plus Date Menarche Onset Age Delivery Information Delivery Date Delivery Type Labor Anesthesia Weeks Gestation Incision Type Labor Labor Length Hrs Delivered By Post Complications Tubal Sterilization Discharge Date Comments 6 Discharge Information Feeding Method Contraceptive Method Maternal HG B and HCT Levels Ob Episode Information Episode Created Date Number of Fetuses Patient Bloodtype Patient rh Status Prepregnancy Weight lbs Domestic Partner Domestic Partner Phone Father Name Production Supervisor Off Shift Status 03/14/20 20 1 CLOSED Fetus Data First Name Last Name Admitted to NICU Weight (g) Sex Living Outcome Pediatric Complications Fetus ID Race Codes Race Delivery Type 1211 Vaginal Delivery Chuck Calculation Initial Chuck Date Initial Exam Date Initial Exam Provider Initial Ultrasound Date Last Menstrual Period Date Ultra Sound Weeks Gestation 0 Eighteen To Twenty Week Chuck Update Ultra Sound Date Fundal Height At Umbil Quickening Date Ultra Sound Latest Weeks Gestation Final Chuck Confirmed By Final Chuck Confirmed Date Final Chuck Date Ultra Sound Latest Days Gestation 0 0 Menstrual History Last Menstrual Date Menses Monthly On Bcp Conception Prior Menses Frequency Hcg Plus Date Menarche Onset Age Delivery Information Delivery Date Delivery Type Labor Anesthesia Weeks Gestation Incision Type Labor Labor Length Hrs Delivered By Post Complications Tubal Sterilization Discharge Date Comments 5 Discharge Information Feeding Method Contraceptive Method Maternal HG B and HCT Levels Ob Episode Information Episode Created Date Number of Fetuses Patient Bloodtype Patient rh Status Prepregnancy Weight lbs Domestic Partner Domestic Partner Phone Father Name Production Supervisor Off Shift Status 03/14/20 20 1 CLOSED Fetus Data First Name Last Name Admitted to NICU Weight (g) Sex Living Outcome Pediatric Complications Fetus ID Race Codes Race Delivery Type 1213 Vaginal Delivery Chuck Calculation Initial Chuck Date Initial Exam Date Initial Exam Provider Initial Ultrasound Date Last Menstrual Period Date Ultra Sound Weeks Gestation 0 Eighteen To Twenty Week Chuck Update Ultra Sound Date Fundal Height At Umbil Quickening Date Ultra Sound Latest Weeks Gestation Final Chuck Confirmed By Final Chuck Confirmed Date Final Chuck Date Ultra Sound Latest Days Gestation 0 0 Menstrual History Last Menstrual Date Menses Monthly On Bcp Conception Prior Menses Frequency Hcg Plus Date Menarche Onset Age Delivery Information Delivery Date Delivery Type Labor Anesthesia Weeks Gestation Incision Type Labor Labor Length Hrs Delivered By Post Complications Tubal Sterilization Discharge Date Comments 8 Discharge Information Feeding Method Contraceptive Method Maternal HG B and HCT Levels
--- OUTSIDE RECORDS SUMMARY | 2025-08-23 16:51 | XMS_ITS | Clinical Summary ---
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
--- OUTSIDE RECORDS SUMMARY | 2025-08-23 16:51 | XMS_ITS | Clinical Summary ---
Author Organization [facility] Address [address] [place] [address] Care Team Providers Care Workers Compensation Claims Assistant Name Role Phone Chris Valdovinos MD Primary Care Provider [phone] Allergies No known active allergies Medications pantoprazole EC 40 MG tablet Take 40 mg by mouth daily. 10/25/2020 Active Garlic 1000 MG capsule Take 1,000 mg by mouth daily. Active Ascorbic Acid (VITAMIN C) 100 MG tablet Take 100 mg by mouth daily. Active Hyaluronic Acid 400-80-40 MG Cap Take 1 tablet by mouth daily. Active HYDROcodone-lidia taminophen 5-325 MG tabletIndicatio ns:Acute Pain < 7 Day Supply Take 1-2 tablets by mouth every 6 (six) hours as needed for Pain. Indications: Acute Pain < 7 Day Supply For Moderate Pain 20 tablet 12/17/2020 Active estradiol (ESTRACE) 0.1 MG/GM vaginal cream 05/31/2025 Active valACYclovir (VALTREX) 1 g tablet 05/27/2025 Active Active Problems Problem Noted Date Diagnosed Date Nondisplaced fracture of distal end of left radi us 05/19/2025 Encounters Date Type Department Care Team Description 06/28/2025 1:20 PM CDT [facility] [address] [place] [address] Gaurav Garcia NP Fracture (Left Distal Radial Fracture 05/04/25) 06/28/2025 Travel 06/08/2025 9:00 AM CDT [facility] [address] [place] [address] Gaurav Garcia NP Fracture (Left distal radial fx 05/04/25, cut off cast) 06/08/2025 Scan HEALTH INFO SRVCS Scanned, [facility] 06/08/2025 Travel 05/29/2025 Telephone [facility] [address] [place] [address] Gaurav Garcia NP Referral from Last 3 Months Family History Medical History Relation Comments Hypertension Father Cancer Mother uterine/ovarian Hypertension Mother Relation Status Comments Daughter 1 Alive Daughter 2 Alive Father Alive Mother Alive Son 1 Alive Son 2 Alive Social History Tobacco Use Types Packs/Day Years Used Date Smoking Tobacco: Never Smokeless Tobacco: Never Tobacco Cessation:Counseling Given: No Alcohol Use Standard Drinks/Week Comments Not Currently 0 (1 standard drink = 0.6 oz pur e alcohol) AUDIT-C Answer Date Recorded Q1: How often do you have a drink containing alc ohol? Never 12/07/2020 Average Number of Drinks Not on file 021 Frequency of Binge Drinking Not on file 11/10 PHQ-2 Answer Date Recorded Patient Health Questionnaire-2 Score 0 05/19/2025 Comments No Sex and Gender Information Value Date Recorded Sex Assigned at Female 05/04/2025 12:53 PM CDT Legal Sex Female 7:08 PM CDT Gender Identity Female 05/19/2025 3:16 PM CDT Sexual Orientation Straight 05/19/2025 3: 16 PM CDT Last Filed Vital Signs Vital Sign Reading Time Taken Comments Blood Pressure 107/64 06/28/2025 1:10 PM CDT Pulse 71 06/28/2025 1:10 PM CDT Temperature 36.6 C (97.8 F) 06/28/2025 1:10 PM CDT Respiratory Rate 16 05/04/2025 1:56 PM CDT Oxygen Saturation 100% 06/28/2025 1:10 PM CDT Inhaled Oxygen Concentration - - Weight 67.5 kg (148 lb 12.8 oz) 06/28/2025 1:10 PM CDT Height 172.7 cm (5' 8) 06/28/2025 1:10 PM CDT Body Mass Index 22.62 06/28/2025 1:10 PM CDT Plan of Treatment Health Maintenance Due Date Last Done Comments Cervical Cancer Screening Pap Smear (Age 30 to 64) Every 3 Years 1967 Colorectal Cancer Screening Colonoscopy (10 Years) 1967 Annual Physical 1970 Hepatitis C 1985 DTaP, Tdap and Td Vaccines (1 - Tdap) 1986 Hepatitis B Vaccines (1 of 3 - 19+ 3-dose series) 1986 Cervical Cancer Screening Pap with HPV Testing (Age 30 to 64) Every 5 Years 1997 Cervical Cancer Screening with HPV 1997 Pneumococcal Vaccine: 50+ Years (1 of 1 - PCV) 2017 Zoster Vaccines (1 of 2) 2017 Mammogram Screening 04/27/2019 04/27/2017 COVID-19 Vaccine (2024- season) 2025 11/26/2023, 11/26/2023, 11/26/2023, Additional history exists Influenza Adult (#1) 2025 PHQ-2 ([facility]) Completed 05/19/2025 Hepatitis A Vaccines Aged Out No long er eligible based on patient's age to complete this topic Meningococcal B Vaccine Aged Out No l onger eligible based on patient's age to complete this topic Meningococcal Vaccine Aged Out No brittni jessica eligible based on patient's age to complete this topic RSV Immunizations Under 20 Months Aged Out No longer eligible based on patient's age to complete this topic Procedures Procedure Name Priority Date/Time Associated Diagnosis Comments XR WRIST LT MIN 3V Routine 06/28/2025 1: 08 PM CDT Nondisplaced fracture of distal end of left radius XR WRIST LT MIN 3V Routine 06/08/2025 9: 08 AM CDT Nondisplaced fracture of distal end of left radius from Last 3 Months Results * XR WRIST LT MIN 3V (06/28/2025 1:08 PM CDT) Only the most recent of2 resultswithin the time period is included. Anatomical Region Laterality Modality Wrist Radiographic Alba ging 06/28/2025 2:41 PM CDT Impressions 06/28/2025 2:42 PM CDT IMPRESSION: Healing changes of previously identified nondisplaced left distal radial fracture. Ordered By: GAURAV GARCIA Interpreted By: Joey Monroy MD, 06/28/2025 2:41 PM Narrative 06/28/2025 2:42 PM CDT Examination: XR WRIST LT MIN 3V Exam time: 06/28/2025 1:05 PM Clinical history: Fracture left wrist Comparison: 06/08/2025 Technique: PA, oblique, and lateral views left wrist Findings: There are findings consistent with healing changes of previously identified nondisplaced left distal radial fracture. Fracture line is less conspicuous and there is increased density about the previous fracture consistent with endosteal callus. Carpal bone relationships and appearances appear unremarkable. Visualized metacarpals appear unremarkable. Left distal ulna appears normal. Procedure Note Joey Monroy MD - 06/28/2025 Examination: XR WRIST LT MIN 3V Exam time: 06/28/2025 1:05 PM Clinical history: Fracture left wrist Comparison: 06/08/2025 Technique: PA, oblique, and lateral views left wrist Findings: There are findings consistent with healing changes of previouslyidentified nondisplaced left distal radial fracture. Fracture line is lessconspicuous and there is increased density about the previous fractureconsistent with endosteal callus. Carpal bone relationships and appearances appear unremarkable. Visualizedmetacarpals appear unremarkable. Left distal ulna appears normal. IMPRESSION: Healing changes of previously identified nondisplaced left distal radialfracture. Ordered By: GAURAV GARCIA Interpreted By: Joey Monroy MD, 06/28/2025 2:41 PM Gaurav Garcia [facility] MANAGER GENERAL [facility]AG[facility] Final Re sult from Last 3 Months Insurance [place] MEDICA[employer] Care Teams Workers Compensation Claims Assistant Relationship Specialty Start Date End Date Chris Valdovinos MD [address] [place] [address] [address] [place] [address] PCP - General FAMILY PRACTICE 05/04/25
== END 2025-08-23 14:31 | disposition home or self-care (01) ==
PROVIDERS: PCP Nurse Practitioner Family; Visit Provider Nurse Practitioner Family
DX: M25.511 Pain in right shoulder (principal)
CPT/HCPCS: 73030